=== PATIENT | female | born 1970 | race Caucasian/White ===

== ENCOUNTER 2018-02-06 19:54 | Emergency (ER) | payer OTHER ==
[~2018-02-06] VITALS: Ht 160 cm; Wt 77.1 kg
[~2018-02-06 19:54] MED LIST: DICLOFENAC SODI75 MG PO; HYDROCODONE-APA1 TA1 PO; IBUPROFEN 200200 M1 PO; NAPROSYN500 MG PO
[2018-02-06 19:58] VITALS: BP 152/88
[2018-02-06] MEDS ORDERED: METFORMIN HCL500 MG PO (20:03)
[2018-02-06] MEDS ORDERED: VOLTAREN 50MG T50 MG PO (20:07)
[2018-02-06] MEDS ORDERED: HYDROCODONE-AP1 EAC6 PO (20:07)
== END 2018-02-06 20:14 | disposition home or self-care (01) ==
LOC: M.ERS 19:54
DX: G89.29 Other chronic pain (principal); M25.562 Pain in left knee; E11.9 Type 2 diabetes mellitus without complications; I10 Essential (primary) hypertension; F17.210 Nicotine dependence, cigarettes, uncomplicated; Z88.6 Allergy status to analgesic agent; Z96.652 Presence of left artificial knee joint

== ENCOUNTER 2018-11-27 10:41 | Emergency (ER) | payer BC ==
[~2018-11-27] VITALS: Ht 162.6 cm; Wt 77.1 kg
[~2018-11-27 10:41] MED LIST changes: +HYDROCODONE-AP1 EAC6 PO; +METFORMIN HCL500 MG PO; +VOLTAREN 50MG T50 MG PO
[2018-11-27 11:27] LABS: URINE BILIRUBIN NEGATIVE (Negative); URINE BLOOD NEGATIVE (Negative); URINE CLARITY CLEAR; URINE COLOR YELLOW; URINE GLUCOSE-RANDOM NEGATIVE (Negative); URINE KETONES NEGATIVE (Negative); URINE LEUKOCYTES-REFLEX NEGATIVE (Negative); URINE NITRITE-REFLEX NEGATIVE (Negative); URINE PROTEIN NEGATIVE (Negative); URINE UROBILINOGEN 0.2 E.U./dl (0.2-1.0)
[2018-11-27 11:31] LABS: ABSOLUTE BASOPHILS 0.1 thou/uL (0.0-0.2); ABSOLUTE EOSINOPHILS 0.2 thou/uL (0.0-0.7); ABSOLUTE MONOCYTES 0.7 thou/uL (0.0-1.2); ABSOLUTE NEUTROPHILS 7.6 thou/uL (1.6-8.1); BASOPHILS 1.1 %; EOSINOPHILS 1.9 %; HEMATOCRIT 38.2 % (37.0-47.0); LYMPHOCYTES 18.8 %; MCH 30.4 pg (26.0-34.0); MCHC 34.1 g/dL (28.0-37.0); MCV 89.1 fL (80.0-100.0); MONOCYTES 6.9 %; NUCLEATED RBCS 0 /100WBC; PLATELET COUNT* 325 thou/uL (150-400); POLYS 71.3 %; RBC 4.29 mil/uL (4.20-5.00); RDW-CV 16.8 % (10.5-14.5); WBC 10.7 thou/uL (4.0-11.0)
[2018-11-27 11:50] LABS: ANION GAP 10 mmol/L (7-16); BUN 16 mg/dL (7-18); CALCIUM 9.5 mg/dL (8.5-10.1); CHLORIDE 104 mmol/L (98-107); CO2 25 mmol/L (21-32); CREATININE 0.7 mg/dL (0.6-1.3); GLUCOSE 147 mg/dL (70-99); POTASSIUM 4.7 mmol/L (3.5-5.1); SODIUM 139 mmol/L (136-145); TROPONIN-I LEVEL <0.06 ng/mL (<0.06)
[2018-11-27 11:58] LABS: ALBUMIN 3.5 g/dL (3.4-5.0); ALKALINE PHOSPHATASE 68 U/L (46-116); LIPASE 227 U/L (73-393); SGOT 14 U/L (15-37); SGPT 18 U/L (30-65); TOTAL BILIRUBIN 0.1 mg/dL (<0.1-1.0); TOTAL PROTEIN 7.8 g/dL (6.4-8.2)
[2018-11-27] MEDS ORDERED: HYDROXYZINE HCL25 M1 PO (12:06)
[2018-11-27 12:40] VITALS: BP 114/59
--- NOTE | 2018-11-27 13:37 | EKG ---
[place] [address] ELECTROCARDIOGRAM REPORT Name: JACQUE GAR Room: [facility]#: [id number] Admission: 11/27/18 Attend Phys: Discharge: 11/27/18 Date of : 72 Report #: [id number] THIS REPORT FOR: //name// [facility] ED Test Date: 2018-11-27 Test Time: 10:48:12 Pat Name: JACQUE GAR Department: Room: Gender: F Clerical Aide Teacher: Christianne RUSSELL : 1970 Requested By: Angelica Rice Order Number: [id number] MD: Andrew Trinidad Measurements Intervals [place] Rate: 79 P: 55 [place]: 142 QRS: 31 QRSD: 95 T: -5 QT: 360 QTc: 413 Interpretive Statements Sinus rhythm No previous ECG available for comparison Electronically Signed On 11-27-2018 13:37:03 CDT by Andrew Trinidad [email or web address] <ELECTRONICALLY SIGNED> By: Andrew Trinidad MD, [facility] 11/27/18 1337 1048 1048 Andrew Trinidad MD, FACC /EPI
== END 2018-11-27 12:40 | disposition home or self-care (01) ==
LOC: M.ERS 10:41
PROVIDERS: Physician Assistant
DX: I10 Essential (primary) hypertension (principal); F41.9 Anxiety disorder, unspecified; E11.9 Type 2 diabetes mellitus without complications; F17.210 Nicotine dependence, cigarettes, uncomplicated; Z88.8 Allergy status to other drugs, medicaments and biological substances

== ENCOUNTER → 2019-02-12 | Outpatient (CLI) | payer BC ==
[~2019-02-12] MED LIST changes: +HYDROXYZINE HCL25 M1 PO
[2019-02-12 11:39] LABS: ABSOLUTE BASOPHILS 0.1 thou/uL (0.0-0.2); ABSOLUTE EOSINOPHILS 0.3 thou/uL (0.0-0.7); ABSOLUTE MONOCYTES 0.6 thou/uL (0.0-1.2); ABSOLUTE NEUTROPHILS 5.4 thou/uL (1.6-8.1); BASOPHILS 1.1 %; EOSINOPHILS 3.6 %; HEMATOCRIT 46.4 % (37.0-47.0); HEMOGLOBIN 15.5 gm/dL (12.0-15.0); LYMPHOCYTES 24.2 %; MCH 31.8 pg (26.0-34.0); MCHC 33.4 g/dL (28.0-37.0); MCV 95.2 fL (80.0-100.0); MONOCYTES 6.9 %; MPV 8.3 fl. (7.2-11.1); NUCLEATED RBCS 0 /100WBC; PLATELET COUNT* 259 thou/uL (150-400); POLYS 64.2 %; RBC 4.87 mil/uL (4.20-5.00); RDW-CV 14.1 % (10.5-14.5); WBC 8.4 thou/uL (4.0-11.0)
[2019-02-12 12:02] LABS: ALBUMIN 3.9 g/dL (3.4-5.0); ALKALINE PHOSPHATASE 72 U/L (46-116); ANION GAP 11 mmol/L (7-16); BUN 18 mg/dL (7-18); CALCIUM 9.7 mg/dL (8.5-10.1); CHLORIDE 100 mmol/L (98-107); CHOLESTEROL 325 mg/dL (<200); CO2 26 mmol/L (21-32); CREATININE 0.7 mg/dL (0.6-1.3); GLUCOSE 178 mg/dL (70-99); HDL CHOLESTEROL 49 mg/dL (>40); LDL CHOLESTEROL 255 mg/dL (<100); POTASSIUM 4.4 mmol/L (3.5-5.1); SGOT 11 U/L (15-37); SGPT 16 U/L (30-65); SODIUM 137 mmol/L (136-145); TC:HDL 6.6 Ratio (Not establshd); TOTAL BILIRUBIN 0.3 mg/dL (<0.1-1.0); TOTAL PROTEIN 8.6 g/dL (6.4-8.2); TRIGLYCERIDE 109 mg/dL (<150); VLDL 22 mg/dL (<40)
[2019-02-12 12:07] LABS: SERUM ASSESSMENT Clear
[2019-02-12 21:09] LABS: PROLACTIN 6.1 ng/mL (4.8-23.3); TESTOSTERONE 21 ng/dL (8-48)
[2019-02-13 12:05] LABS: GLYCOHEMOGLOBIN (HGB A1C) 6.8 % (4.8-5.6)
== END ==
LOC: M.LAB 10:55
PROVIDERS: Nurse Practitioner Family
DX: E11.65 Type 2 diabetes mellitus with hyperglycemia (principal); R53.83 Other fatigue; R45.86 Emotional lability; N95.1 Menopausal and female climacteric states; Z79.899 Other long term (current) drug therapy

== ENCOUNTER 2019-05-24 05:32 | Emergency (ER) | payer BC ==
[~2019-05-24] VITALS: Ht 160 cm; Wt 74.8 kg
[2019-05-24] MEDS ORDERED: GABAPENTIN100 MG PO (05:40)
[2019-05-24] MEDS ORDERED: LIPITOR40 MG PO (05:40)
[2019-05-24] MEDS ORDERED: PROPRANOLOL 1010 MG PO (05:40)
[2019-05-24] MEDS ORDERED: NORCO 7.5-3251 EACH PO (05:52)
[2019-05-24] MEDS ORDERED: CLEOCIN HCL150 MG PO (05:52)
[2019-05-24 05:59] VITALS: BP 164/94
== END 2019-05-24 06:00 | disposition home or self-care (01) ==
LOC: M.ERS 05:32
DX: K04.7 Periapical abscess without sinus (principal); F17.210 Nicotine dependence, cigarettes, uncomplicated; I10 Essential (primary) hypertension; E11.9 Type 2 diabetes mellitus without complications; Z88.6 Allergy status to analgesic agent

== ENCOUNTER 2019-12-27 02:30 | Inpatient (IN) | payer BC ==
[2019-12-27] VITALS (43 sets, daily range): BP systolic 81–146; BP diastolic 54–85
[~2019-12-27] VITALS: Ht 160 cm; Wt 80.7 kg
--- NOTE | ~2019-12-27 | H ---
[place] [address] HISTORY AND PHYSICAL Name: JACQUE GAR Room: [place] [address] ADM IN M.R.#: [id number] Admission: 12/27/19 Attend Phys: Willie Albrecht MD Discharge: Date of : 72 Report #: [id number] THIS REPORT FOR: //name// cc: Jose Enrique Cui Russell J. DO ~ THIS REPORT FOR: //name// CC: Willie Cui DATE OF SERVICE: 12/27/2019 INDICATION: Chest pain. HISTORY OF PRESENT ILLNESS: This is a 49-year-old female with a history of diabetes mellitus, tobacco use and hypercholesterolemia, presenting with acute onset of chest pain. After having sexual intercourse, she developed severe back pain. It radiated to the front and down both arms. She denies any shortness of breath, fever, chills, cough, diarrhea or diaphoresis. She presented to the ER within an hour of onset of symptoms. EKG showed severe ST segment depressions in the precordial leads. The patient was treated with aspirin and heparin, symptoms have diminished, but still persistent. PAST MEDICAL HISTORY: Diabetes mellitus, usually on Jardiance, but has not been on it for the past month due to cost issues; hypercholesterolemia; anxiety; neuropathy. ALLERGIES: None. MEDICATIONS: Include Lipitor 40 mg, propranolol for anxiety, gabapentin, Jardiance, but not on it for the past month. ALLERGIES: None. SOCIAL HISTORY: One pack per day smoker. FAMILY HISTORY: Negative for premature CAD. REVIEW OF SYSTEMS: A full 10-point review of systems performed. Only the pertinent positives and negatives are described in the HPI. PHYSICAL EXAMINATION: VITAL SIGNS: Blood pressure 120/70, heart rate is 90 beats per minute. GENERAL APPEARANCE: This is a well-developed, well-nourished female in no acute distress. HEENT: Normocephalic, atraumatic. [place] [address] HISTORY AND PHYSICAL Name: JACQUE GAR Room: [address] IN ..#: [id number] Admission: 12/27/19 Attend Phys: Willie Albrecht MD Discharge: Date of : 72 Report #: [id number] NECK: Supple. LUNGS: Clear to auscultation. CARDIAC: Regular rate and rhythm, S1, S2 positive. ABDOMEN: Soft, nontender. EXTREMITIES: No cyanosis, no edema. NEUROLOGIC: Alert and oriented x 3. ECG reveals sinus rhythm with ST segment depressions in the precordial leads. LABORATORY VALUES: Pending. ASSESSMENT AND PLAN: 1. Acute coronary syndrome/unstable angina, the patient with acute onset of symptoms and abnormal ECG. Initially treated with aspirin and heparin, but symptoms are still persistent. We will proceed with emergent cardiac catheterization. Risks/benefits and alternatives discussed. The patient voices understanding and wishes to proceed. 2. Diabetes mellitus, resume Jardiance. 3. Hypercholesterolemia, continue with Lipitor. 4. Tobacco use, complete smoking cessation is advised. By: [id number] Albrecht MD /nt
[~2019-12-27 02:30] MED LIST changes: +CLEOCIN HCL150 MG PO; +GABAPENTIN100 MG PO; +LIPITOR40 MG PO; +NORCO 7.5-3251 EACH PO; +PROPRANOLOL 1010 MG PO
[2019-12-27] MEDS ORDERED: ADDERALL 20 MG20 MG PO (02:49)
[2019-12-27] MEDS ORDERED: CYMBALTA30 MG PO (02:49)
[2019-12-27] MEDS ORDERED: NEURONTIN 300M300 M2 PO (02:50)
[2019-12-27 02:59] LABS: ABSOLUTE BASOPHILS 0.2 thou/uL (0.0-0.2); ABSOLUTE EOSINOPHILS 0.5 thou/uL (0.0-0.7); ABSOLUTE LYMPHOCYTES 4.7 thou/uL (0.8-5.3); ABSOLUTE MONOCYTES 1.4 thou/uL (0.0-1.2); ABSOLUTE NEUTROPHILS 8.9 thou/uL (1.6-8.1); BASOPHILS 1.2 %; EOSINOPHILS 3.1 %; HEMATOCRIT 39.8 % (37.0-47.0); HEMOGLOBIN 13.8 gm/dL (12.0-15.0); LYMPHOCYTES 29.8 %; MCH 31.9 pg (26.0-34.0); MCHC 34.5 g/dL (28.0-37.0); MCV 92.3 fL (80.0-100.0); MONOCYTES 8.8 %; MPV 7.8 fl. (7.2-11.1); NUCLEATED RBCS 0 /100WBC; PLATELET COUNT* 269 thou/uL (150-400); POLYS 57.1 %; RBC 4.31 mil/uL (4.20-5.00); WBC 15.6 thou/uL (4.0-11.0)
[2019-12-27 03:11] LABS: INR 0.9; PROTIME 9.5 Seconds (9.20-11.50)
[2019-12-27 03:17] LABS: CALCIUM 8.3 mg/dL (8.5-10.1); CREATININE 0.8 mg/dL (0.6-1.3)
[2019-12-27 03:27] LABS: ALBUMIN 3.4 g/dL (3.4-5.0); TOTAL BILIRUBIN 0.2 mg/dL (<0.1-1.0); TOTAL PROTEIN 7.7 g/dL (6.4-8.2)
[2019-12-27] MEDS ORDERED: LIPITOR40 MG PO (03:29)
[2019-12-27 06:19] LABS: HEMATOCRIT 40.1 % (37.0-47.0); HEMOGLOBIN 13.6 gm/dL (12.0-15.0); MCH 31.2 pg (26.0-34.0); MCHC 33.8 g/dL (28.0-37.0); MCV 92.3 fL (80.0-100.0); RBC 4.34 mil/uL (4.20-5.00); RDW-CV 13.6 % (10.5-14.5); WBC 13.4 thou/uL (4.0-11.0)
[2019-12-27 06:35] LABS: ALBUMIN 3.3 g/dL (3.4-5.0); CALCIUM 8.3 mg/dL (8.5-10.1); CREATININE 0.7 mg/dL (0.6-1.3); POTASSIUM 4.4 mmol/L (3.5-5.1); TOTAL BILIRUBIN 0.2 mg/dL (<0.1-1.0)
[2019-12-27 06:36] LABS: CK-MB MASS 3.5 ng/mL (<0.5-3.6); TROPONIN-I LEVEL 0.65 ng/mL (<0.06)
--- NOTE | 2019-12-27 07:24 | NUR ---
PATIENT ARRIVED FROM SENIOR DIRECTOR OF [employer] AT 0450. R GROIN INSERTION SITE CLEAN DRY AND INTACT. NO EVIDENCE OF HEMATOMA OR INTERNAL BLEEDING. SENSATION TO LOWER EXTREMITY INTACT. PATIENT COMPLAINING OF MODERATE BACK PAIN. ADMINISTERED PAIN MEDS PER ORDER. PATIENT IS REPORTED TO BE A CHRONIC 2 PPD SMOKER AND DRINKS 3-4 BEERS EACH NIGHT. REFUSED CASE MANAGMENT CONSULT. PATIENT IS EAGER TO BE DISCHARGED TODAY. PATIENT WAS INFORMED IT WOULD DEPEND ON THE RN CRITICAL CARE'S FINDINGS AND HOW THE PATIENT PROGRESSED WITH THE PLAN OF CARE. PATIENT CAN COME OFF BEDREST AT 0900. NO OTHER SIGNIFICANT EVENTS THIS SHIFT. VSS
[2019-12-27] MEDS ORDERED: VISTARIL50 MG PO (14:07)
--- NOTE | 2019-12-27 16:10 | EKG ---
[place] [address] ELECTROCARDIOGRAM REPORT Name: JACQUE GAR Room: [address] ADM IN M.R.#: [id number] Admission: 12/27/19 Attend Phys: Willie Albrecht MD Discharge: Date of : 72 Date of Service: 12/27/19 0232 Report #: [id number] THIS REPORT FOR: //name// [facility] ED Test Date: 2019-12-27 Test Time: 02:32:31 Pat Name: JACQUE GAR Department: Room: [facility] Gender: F Customer Energy Specialist: LUCIO : 1970 Requested By: Leilani Villafana Order Number: [id number] MD: Sajan Manjarrez Measurements Intervals [place] Rate: 79 P: 73 [place]: 145 QRS: 55 QRSD: 113 T: 52 QT: 394 QTc: 452 Interpretive Statements Sinus rhythm Probable left atrial enlargement Borderline intraventricular conduction delay Repol abnrm suggests ischemia, diffuse leads ST depression V1-V3, suggest recording posterior leads Compared to ECG 11/27/2018 10:48:12 Early repolarization now present Possible ischemia now present ST (T wave) deviation now present Electronically Signed On 12-27-2019 16:08:25 CDT by Sajan Manjarrez [email or web address] <ELECTRONICALLY SIGNED> By: Sajan Manjarrez MD, [facility] 12/27/19 1608 1 1 Sajan Manjarrez MD, [facility] /EPI
--- NOTE | 2019-12-27 17:55 | NUR ---
PT TRANFERED TO ROOM 222. REPORT GIVEN TO SHELL LEVINE. ALL BELONGINGS SENT WITH PT.
--- NOTE | 2019-12-27 18:58 | NUR ---
PT ARRIVED TO FLOOR FROM ICU IN WC. PT A&OX4 VSS. PT UP AD DUKE GAIT STEADY. PT ACCUCHECK, SLIDING SCALE INSULIN ON OCT. PT ATE DINNER PRIOR TO LEAVING ICU. PT CONTINENT OF B/B. PT IN ROOM WITH CALL LIGHT IN REACH. WILL CONTINUE TO MONITOR.
[2019-12-28] VITALS: BP 130/83
[2019-12-28 04:00] VITALS: BP 148/97
[2019-12-28 04:40] LABS: HEMATOCRIT 37.9 % (37.0-47.0); MCH 31.7 pg (26.0-34.0); MCHC 34.2 g/dL (28.0-37.0); MCV 92.6 fL (80.0-100.0); MPV 7.9 fl. (7.2-11.1); RBC 4.09 mil/uL (4.20-5.00); RDW-CV 13.4 % (10.5-14.5); WBC 8.1 thou/uL (4.0-11.0)
[2019-12-28 05:14] LABS: ALBUMIN 3.1 g/dL (3.4-5.0); ALKALINE PHOSPHATASE 72 U/L (46-116); ANION GAP 11 mmol/L (7-16); BUN 11 mg/dL (7-18); CALCIUM 7.9 mg/dL (8.5-10.1); CHLORIDE 103 mmol/L (98-107); CHOLESTEROL 266 mg/dL (<200); CO2 25 mmol/L (21-32); CREATININE 0.6 mg/dL (0.6-1.3); GLUCOSE 128 mg/dL (70-99); HDL CHOLESTEROL 45 mg/dL (>40); LDL CHOLESTEROL 200 mg/dL (<100); POTASSIUM 3.9 mmol/L (3.5-5.1); SGOT 25 U/L (15-37); SGPT 20 U/L (30-65); SODIUM 139 mmol/L (136-145); TC:HDL 5.9 Ratio (Not establshd); TOTAL BILIRUBIN 0.3 mg/dL (<0.1-1.0); TOTAL PROTEIN 6.5 g/dL (6.4-8.2); TRIGLYCERIDE 108 mg/dL (<150); VLDL 22 mg/dL (<40)
[2019-12-28 05:15] LABS: SERUM ASSESSMENT Clear
[2019-12-28 05:16] LABS: TROPONIN-I LEVEL 2.21 ng/mL (<0.06)
[2019-12-28 07:00] VITALS: BP 133/81
--- NOTE | 2019-12-28 07:56 | NUR ---
PT A+O X4. UP WITH STEADY GAIT. WAS VISITING NIECE WHO WAS ANOTHER PT ON THE UNIT. ONLY REPORTED BACK PAIN @ BEDTIME. RIGHT GROIN DRESSING DRY AND INTACT. SLEPT THROUGH REMAINDER OF SHIFT. CALL LIGHT IN REACH. HOUIRLY ROUNDING FOR SAFETY.
--- NOTE | 2019-12-28 08:28 | NUR ---
INITAL ASSESSMENT COMPLETED CHARTED. VSS. TRACING SR ON MONITOR. PT DENIES PAIN, N/V/D, SOA, CP. NO NEW CONCERNS AT THSI TIME. REFER TO COMPUTER CHARTING FOR FURTHER DETAILS. HOURLY ROUNDING IN PLACE FOR PT SAFETY. CLWR.
[2019-12-28] MEDS ORDERED: ASPIR 8181 MG PO (09:54)
[2019-12-28] MEDS ORDERED: LIPITOR 40 MG T40 M1 PO (09:54)
[2019-12-28] MEDS ORDERED: LOPRESSOR25 PO (09:54)
[2019-12-28] MEDS ORDERED: BRILINTA90 MG PO (09:54)
[2019-12-28 10:00] VITALS: BP 133/81
[2019-12-28 10:33] VITALS: BP 133/81
--- NOTE | 2019-12-28 10:48 | CARD ---
[address] [address] CARDIAC CATH REPORT Name: JACQUE GAR Room: [address] IN [facility].#: [id number] Admission: 12/27/19 Attend Phys: Willie Albrecht MD Discharge: Date of : 72 Report #: [id number] THIS REPORT FOR: //name// cc: Jose Enrique Cui Russell J. DO ~ APPROVED REPORT Study performed: 12/27/2019 03:06:43 Patient Details Patient Status: ED Room #: The patient is a 49 year-old female Event Personnel Elmer Magdaleno RTR Monitor, Juju Campoverde RN, Marquise Sarabia Park, Jin Reducing Machine Operator Procedures Performed Left Heart Cath w/or w/o Coronaries [id number] [facility] Place w/wo Plasty Single CIRC [id number] Hemostasis w/ Angioseal Indication Dyspnea, Unstable angina , Chest pain, The patient presented with acute onset of chest pain. Initial ECG revealed significant ST segment depression in the precordial leads. Symptoms improved but still persisted with medical therapy in the ER. Risk Factors Hypercholesterolemia, Hypertension, Diabetes Tobacco History () Admission/Lab Medications/Medications given during procedure Lidocaine Subcut 20 ml, Fentanyl IV 50 mcg, Midazolam (Versed) IV 1 mg, Angiomax IV 11 ml, Angiomax IV 27 ml per hr, Ticagrelor PO 180 mg Procedure Narrative The patient was brought emergently to the Cardiac Catheterization Laboratory and was prepped and draped in a sterile manner. The right femoral was infiltrated with 2% Lidocaine subcutaneous anesthesia. A [place] 6 FR sheath was inserted into the right femoral artery. Coronary angiography was performed using coronary diagnostic catheters. The right coronary system was accessed and visualized with a Diagnostic JR4 6Fr catheter. The left [place] [address] CARDIAC CATH REPORT Name: JACQUE GAR Room: [address] IN ..#: [id number] Admission: 12/27/19 Attend Phys: Willie Albrecht MD Discharge: Date of : 72 Report #: [id number] and visualized with a Diagnostic JL4 6Fr catheter. The left ventricle was accessed and visualized with a Diagnostic Pigtail Angeled 6Fr catheter. Closure device was deployed with a Fr Angioseal STS 6Fr. The patient tolerated the procedure well and there were no complications associated with the procedure. There was no hematoma. Intraoperative Conscious Sedation Sedation start time: 339 Case end Time: 428 Fentanyl 50 mcg Versed 2 mg Fluoro Time: 20.6 minutes Dose: DAP 704756 cGycm2 2165.38 mGy Contrast Type and Amount: Visipaque 200 ml Coronary Angiography The patient's coronary anatomy is co- dominant. Diagnostic Cath Left Main Left main artery is a patent vessel, with no flow-limiting lesions. LAD There is a borderline stenosis in the proximal/mid segment of the LAD, 60%. Diagonal 1 This is a small-caliber vessel, patent with no flow-limiting lesions. Circumflex The left circumflex artery is a codominant vessel. There is a severe, discrete stenosis in the proximal segment, 95%. OM1 This is a moderate size caliber vessel, patent with no flow-limiting lesions. OM2 This is a moderate size caliber vessel, patent with no flow-limiting lesions. OM3 This is a moderate size caliber vessel, patent with no flow-limiting lesions. Right Coronary The RCA has severe, diffuse disease from the proximal to distal segment. R PDA The PDA is filled via collateral circulation from the left coronary artery. Left Ventriculography The left ventricle is normal in size with normal contractility. The left ventricular ejection fraction is estimated to be 55-60%. [place] [address] CARDIAC CATH REPORT Name: JACQUE GAR Room: [address] IN [facility]#: [id number] Admission: 12/27/19 Attend Phys: Willie Albrecht MD Discharge: Date of : 72 Report #: [id number] The aortic pressure is 119/73 mmHg with a mean of 93 mmHg. The left ventricular pressure is 111/4 mmHg with a mean of mmHg. The left ventricular end diastolic pressure is 16 mmHg. PCI Technique Lesion Percutaneous coronary intervention was performed on the proximal circumflex artery segment. The lesion stenosis prior to intervention was 95% with WOODROW 3 flow. A 6FR JL 4.0 Guide Catheter was used to engage the Left ostium. A IG: Luge Wire 180 Interventional Guidewire was used to cross the lesion. BALLOON DILATION A Balloon catheter Trek RX 2.25 X 12 was inserted and inflated up to 12.00atm for 10seconds. STENT DEPLOYMENT A drug-eluting stent Resolute RX 2.5X22 was inserted and inflated up to 14.00atm for 12seconds. POST STENT DEPLOYMENT BALLOON DILATION A Balloon catheter NC Trek RX 2.75 X 12 was inserted and inflated up to 18.00atm for 15seconds. Additional Inflation: 18.00atm for 13seconds. Final angiography reveals 0 % stenosis with WOODROW 3 flow. PCI Technique Lesion 2 Percutaneous coronary intervention was performed on the mid right coronary artery. Comments Unsuccessful PCI involving the severe, diffuse RCA lesions. Due to inability to pass a wire (Luge and Whisper) through the occlusions, more likely chronic as the PDA is filled via collateral circulation from the left coronary artery. Conclusion 1. Successful insertion of a drug-eluting stent into the proximal left circumflex artery(codominant vessel). 2. Unsuccessful PCI due to inability to cross the RCA stenoses with a wire. Probably a chronic occlusion, the PDA is filled via collateral circulation from the left coronary artery. 3. Borderline stenosis in the proximal/mid LAD. 4. Normal [place] [address] CARDIAC CATH REPORT Name: JACQUE GAR Room: [address] IN [facility]#: [id number] Admission: 12/27/19 Attend Phys: Willie Albrecht MD Discharge: Date of : 72 Report #: [id number] 5. Recommend dual antiplatelet therapy and aggressive risk factor management. <ELECTRONICALLY SIGNED> By: Willie Albrecht MD 12/28/19 1046 1046 1046Willie Albrecht MD /INF
--- NOTE | 2019-12-28 14:44 | 2DMMODE ---
[place] [address] 2 D/M-MODE ECHOCARDIOGRAM Name: JACQUE GAR Room: [address] IN [place]#: [id number] Admission: 12/27/19 Attend Phys: Willie Albrecht MD Discharge: 12/28/19 Date of : 72 Date of Service: 12/28/19 1442 Report #: [id number] THIS REPORT FOR: cc: Jose Enrique Cui Russell J. DO Holkins,Oniel Patel MD [facility] ~ APPROVED REPORT Study performed: 12/28/2019 10:31:44 EXAM: Comprehensive 2D, Doppler, and color-flow Echocardiogram Patient Location: In-Patient Room #: [facility] Status: routine BSA: 1.84 HR: 63 bpm BP: 133/81 mmHg Rhythm: NSR Other Information Study Quality: Good Indications Non STEMI 2D Dimensions IVSd: 11.11 (7-11mm) LVOT Diam: 19.96 (18-24mm) LVDd: 49.14 mm PWd: 9.12 (7-11mm) LVDs: 27.75 (25-40mm) Aortic Root: 25.75 mm Volumes Left Atrial Volume (Systole) LA ESV Index: 35.60 mL/m2 Aortic Valve AoV Peak Brennon.: 1.52 m/s AO Peak Gr.: 9.19 mmHg LVOT Max P.00 mmHg AO Mean Gr.: 4.80 mmHg LVOT Mean P.09 mmHg LVOT Max V: 1.12 m/s AO V2 VTI: 30.98 cm LVOT Mean V: 0.65 m/s [place]O (VTI): 2.38 cm2 LVOT V1 VTI: 23.58 [place] [address] 2 D/M-MODE ECHOCARDIOGRAM Name: JACQUE GAR Room: [address] IN M.R.#: [id number] Admission: 12/27/19 Attend Phys: Willie Albrecht MD Discharge: 12/28/19 Date of : 72 Date of Service: 12/28/19 1442 Report #: [id number] Mitral Valve E/A Ratio: 1.62 MV Decel. Time: 192.69 ms MV E Max Brennon.: 0.71 m/s MV PHT: 55.88 ms MVA (PHT): 3.94 cm2 TDI E/Lateral E': 7.10 E/Medial E': 6.45 Medial E' Brennon.: 0.11 m/s Lateral E' Brennon.: 0.10 m/s Pulmonary Valve PV Peak Brennon.: 0.86 m/s PV Peak Gr.: 2.93 mmHg Left Ventricle The left ventricle is normal size. There is mild inferobasilar hypokinesis. There is normal left ventricular wall thickness. Left ventricular systolic function is normal. The left ventricular ejection fraction is within the normal range. LVEF is 55-60%. The left ventricular diastolic function is normal. Right Ventricle The right ventricle is normal size. The right ventricular systolic function is normal. Atria The left atrium size is normal. The right atrium size is normal. Aortic Valve Mild aortic valve sclerosis. No aortic regurgitation is present. There is no aortic valvular stenosis. Mitral Valve The mitral valve is normal in structure. Mild mitral regurgitation. No evidence of mitral valve stenosis. Tricuspid Valve The tricuspid valve is normal in structure. Unable to assess PA pressure. Trace tricuspid regurgitation. Pulmonic Valve The pulmonary valve is normal in structure. There is no pulmon[place] [address] 2 D/M-MODE ECHOCARDIOGRAM Name: JACQUE GAR Room: [address]#: [id number] Admission: 12/27/19 Attend Phys: Willie Albrecht MD Discharge: 12/28/19 Date of : 72 Date of Service: 12/28/19 1442 Report #: [id number] Great Vessels The aortic root is normal in size. IVC is normal in size and collapses >50% with inspiration. Pericardium There is no pericardial effusion. <Conclusion> The left ventricle is normal size. There is normal left ventricular wall thickness. Left ventricular systolic function is normal. The left ventricular ejection fraction is within the normal range. LVEF is 55-60%. The left ventricular diastolic function is normal. The right ventricle is normal size. The left atrium size is normal. Mild aortic valve sclerosis. No aortic regurgitation is present. There is no aortic valvular stenosis. The mitral valve is normal in structure. Mild mitral regurgitation. The tricuspid valve is normal in structure. IVC is normal in size and collapses >50% with inspiration. There is no pericardial effusion. There is mild inferobasilar hypokinesis. <ELECTRONICALLY SIGNED> By: Oniel Witt MD, FACC 12/28/19 1442 1442 144 Oniel Witt MD, FACC /INF
--- NOTE | 2019-12-28 14:55 | EKG ---
[place] [address] ELECTROCARDIOGRAM REPORT Name: JACQUE GAR Room: [address] IN M.R.#: [id number] Admission: 12/27/19 Attend Phys: Willie Albrecht MD Discharge: 12/28/19 Date of : 72 Date of Service: 12/27/19 0238 Report #: [id number] THIS REPORT FOR: //name// [facility] ED Test Date: 2019-12-27 Test Time: 02:38:58 Pat Name: JACQUE GAR Department: Room: [facility] Gender: F Transportation Design Engineer: LUCIO : 1970 Requested By: Willie Albrecht Order Number: [id number] Reading MD: Oniel Witt Measurements Intervals [place] Rate: 74 P: 79 [place]: 142 QRS: 53 QRSD: 115 T: 47 QT: 400 QTc: 444 Interpretive Statements Sinus rhythm with sinus arrhythmia Atrial premature complexes Incomplete left bundle branch block Right precordial ST segment depression; acute posterior injury suggested Compared to ECG 12/27/2019 02:32:31 Atrial premature complex(es) now present Incomplete Left bundle-branch block now present Myocardial infarct finding persists ST (T wave) deviation still present Electronically Signed On 12-28-2019 14:53:18 CDT by Oniel Witt [email or web address] <ELECTRONICALLY SIGNED> By: Oniel Witt MD, [facility] 12/28/19 1453 7 023 Oniel Witt MD, [facility] /EPI
--- NOTE | 2019-12-28 14:55 | EKG ---
[place] [address] ELECTROCARDIOGRAM REPORT Name: JACQUE GAR Room: [address] DIS IN M.R.#: [id number] Admission: 12/27/19 Attend Phys: Willie Albrecht MD Discharge: 12/28/19 Date of : 72 Date of Service: 12/27/19 0628 Report #: [id number] THIS REPORT FOR: //name// [facility] Test Date: 2019-12-27 Test Time: 06:28:00 Pat Name: JACQUE GAR Department: Room: [address] Gender: F Network Security Engineer: ADDIS : 1970 Requested By: Leilani Villafana Order Number: [id number] Reading MD: Oniel Witt Measurements Intervals [place] Rate: 92 P: 75 CT: 149 QRS: 60 QRSD: 100 T: 46 QT: 386 QTc: 478 Interpretive Statements Sinus rhythm Compared to ECG 12/27/2019 02:32:31 Early repolarization no longer present Possible ischemia no longer present ST (T wave) deviation no longer present Electronically Signed On 12-28-2019 14:53:26 CDT by Oniel Witt [email or web address] <ELECTRONICALLY SIGNED> By: Oniel Witt MD, FAC 12/28/19 1453 0628 0628 Oniel Witt MD, FAC /EPI
--- NOTE | 2019-12-28 14:59 | EKG ---
[place] [address] ELECTROCARDIOGRAM REPORT Name: JACQUE GAR Room: [address] IN M.R.#: [id number] Admission: 12/27/19 Attend Phys: Willie Albrecht MD Discharge: 12/28/19 Date of : 72 Date of Service: 12/28/19 0451 Report #: [id number] THIS REPORT FOR: //name// [facility] Test Date: 2019-12-28 Test Time: 04:51:19 Pat Name: JACQUE GAR Department: Room: [facility] Gender: F Retail Marketing Coordinator: SHAKEEL : 1970 Requested By: Willie Albrecht Order Number: [id number] Reading MD: Oniel Witt Measurements Intervals [place] Rate: 70 P: 71 [place]: 143 QRS: 48 QRSD: 107 T: 36 QT: 497 QTc: 537 Interpretive Statements Sinus rhythm Prolonged QT interval Compared to ECG 12/27/2019 02:32:31 Prolonged QT interval now present Early repolarization no longer present Possible ischemia no longer present ST (T wave) deviation no longer present Electronically Signed On 12-28-2019 14:57:43 CDT by Oniel Witt [email or web address] <ELECTRONICALLY SIGNED> By: Oniel Witt MD, FAC 12/28/19 1457 0451 0451 Oniel Witt MD, FAC /EPI
--- NOTE | 2019-12-29 08:29 | D ---
[address] [address] DISCHARGE SUMMARY Name: JACQUE GAR Room: [address] IN M.R.#: [id number] Admission: 12/27/19 Attend Phys: Willie Albrecht MD Discharge: 12/28/19 Date of : 72 Report #: [id number] THIS REPORT FOR: //name// cc: Jose Enrique Cui Russell J. DO ~ THIS REPORT FOR: //name// CC: Willie Cui DATE OF SERVICE: 12/27/2019 CARDIOLOGY DISCHARGE SUMMARY DISCHARGE DIAGNOSES: 1. Non-ST elevation myocardial infarction. 2. Hypertension. 3. Dyslipidemia. 4. Type 2 diabetes mellitus. PROCEDURES DURING THE HOSPITALIZATION: 1. Urgent left heart catheterization and coronary angiography. 2. Percutaneous coronary intervention with drug-eluting stent placement to the circumflex coronary artery. 3. Telemetry monitoring. 4. Echocardiogram. HOSPITAL COURSE: The patient was admitted to the Emergency Room at approximately 2:00 a.m. on 12/27/2019 with acute chest pain. EKG showed diffuse significant ST-segment depression. A code STEMI was called. The patient went to the microbiological laboratory technician and was found to have a subtotally occluded right coronary artery and 95% circumflex coronary artery. The right coronary artery was not amenable to intervention. The circumflex coronary artery was amenable and a drug-eluting stent placed in the mid circumflex with excellent result. The patient has residual moderate disease in the left anterior descending coronary artery. Consideration for staged procedure at this point in time. The patient remained stable on telemetry monitoring. She was started on dual antiplatelet therapy. Fasting lipid profile was evaluated. Her LDL cholesterol was 200. She has not been compliant with her medications. She is being placed on an intense dose statin agent at this time. DISCHARGE MEDICATIONS: Will include aspirin 81 mg daily, atorvastatin 80 mg nightly, duloxetine 90 mg daily, Flexeril 10 mg t.i.d., gabapentin 300 mg t.i.d., hydroxyzine 100 mg every 6 hours p.r.n., metoprolol 12.5 mg b.i.d., Brilinta 90 mg b.i.d. Diabetes medications [place] [address] DISCHARGE SUMMARY Name: JACQUE GAR Room: [address]#: [id number] Admission: 12/27/19 Attend Phys: Willie Albrecht MD Discharge: 12/28/19 Date of : 72 Report #: [id number] 0.4 mg sublingual p.r.n. DISPOSITION: The patient will follow up in the Cardiology office in 1-2 weeks. <ELECTRONICALLY SIGNED> By: Sajan Manjarrez MD, [facility] 12/29/19 0829 0959 [facility] Center[facility]i Manjarrez MD, [facility]ERNA /nt
== END 2019-12-28 12:26 | disposition home or self-care (01) | DRG 247 ==
LOC: M.CL 02:30 → M.ERS 02:30 → M.CL 04:01 → M.TBA-CV 04:05 → M.2W 04:05 → M.ICU 04:48 → M.2W 18:30
PROVIDERS: Emergency Medicine; ADMIT Internal Medicine Cardiovascular Disease
PROC: 4A023N7 Measurement of Cardiac Sampling and Pressure, Left Heart, Percutaneous Approach (ICD-10-PCS; principal; 2019-12-27)
PROC: B215YZZ Fluoroscopy of Left Heart using Other Contrast (ICD-10-PCS; principal; 2019-12-27)
PROC: B211YZZ Fluoroscopy of Multiple Coronary Arteries using Other Contrast (ICD-10-PCS; principal; 2019-12-27)
PROC: 027034Z Dilation of Coronary Artery, One Artery with Drug-eluting Intraluminal Device, Percutaneous Approach (ICD-10-PCS; principal; 2019-12-27)
DX: I21.4 Non-ST elevation (NSTEMI) myocardial infarction (principal); E78.5 Hyperlipidemia, unspecified; I10 Essential (primary) hypertension; E78.00 Pure hypercholesterolemia, unspecified; F41.9 Anxiety disorder, unspecified; I25.10 Atherosclerotic heart disease of native coronary artery without angina pectoris; M19.90 Unspecified osteoarthritis, unspecified site; E11.40 Type 2 diabetes mellitus with diabetic neuropathy, unspecified; Z79.4 Long term (current) use of insulin; Z79.82 Long term (current) use of aspirin; Z88.8 Allergy status to other drugs, medicaments and biological substances; Z79.899 Other long term (current) drug therapy

== ENCOUNTER 2020-01-15 09:19 | Observation (INO) | payer BC ==
[2020-01-15] VITALS (17 sets, daily range): BP systolic 100–1108; BP diastolic 56–82
[~2020-01-15] VITALS: Ht 162.6 cm; Wt 78.9 kg
--- NOTE | ~2020-01-15 | D ---
[address] [address] DISCHARGE SUMMARY Name: JACQUE GAR Room: [address] Tatiana Archer#: [id number] Admission: 01/15/20 Attend Phys: Oniel Witt MD, Discharge: 01/16/20 Date of : 72 Report #: [id number] THIS REPORT FOR: //name// cc: Jose Enrique Cui Russell J. DO ~ THIS REPORT FOR: //name// CC: Oniel Cui DATE OF SERVICE: 01/16/2020 FINAL DISCHARGE DIAGNOSES: 1. Unstable angina. 2. Status post recent infarction. 3. Coronary artery disease. 4. Hypertension. 5. Hyperlipidemia. 6. Type 2 diabetes. PROCEDURES: 01/15/2020 -- left heart catheterization, left ventriculography, selective coronary arteriography and percutaneous coronary intervention with deployment of drug-eluting stent in the proximal-mid LAD. The patient is a pleasant 49-year-old female with aggressive coronary artery disease, underlying hypertension, hyperlipidemia and diabetes. Slightly less than 2 months ago, she presented with acute myocardial infarction interrupted by stenting of the proximal-mid circumflex. She was also noted to have a high-grade proximal-mid LAD stenosis and a chronic total occlusion of the right coronary artery at that time. The latter lesions were not approached in the acute setting. She has continued to experience chest discomfort, compatible angina with modest activity. In this context, recatheterization was performed on 01/15/2020. This revealed 30% proximal circumflex narrowing with widely patent proximal-mid circumflex stent with 80% tubular mid LAD narrowing and chronic total occlusion of the right coronary artery with left to right collaterals filling the distal right coronary artery. Left ventricular function was normal, ejection fraction of 65%. Given this data, I performed PCI, deploying 1 drug-eluting stent, 2.25 x 38 mm [place] drug-eluting stent in the mid LAD, post-dilated to 2.75 mm in the proximal and midportion with 10% residual narrowing and WOODROW 3 flow of the distal vessel. Troponin lauren inconsequentially to 0.07. Additional lab revealed sodium 136, potassium 3.8, BUN 16, creatinine 0.7, glucose 124, hemoglobin 12.3, white blood cell count 9800 with 212,000 platelets. The patient ambulated in the hallways without difficulty [place] [address] DISCHARGE SUMMARY Name: JACQUE GAR [address] [id number] Admission: 01/15/20 Attend Phys: Oniel Witt MD, Discharge: 01/16/20 Date of : 72 Report #: [id number] hemostasis at the right femoral site of catheterization. DISCHARGE MEDICATIONS: The patient was discharged to home on the following medications: Amphetamine or Adderall 20 mg tablets 1 b.i.d., aspirin 81 mg daily, atorvastatin 80 mg daily, duloxetine or Cymbalta 90 mg daily, Jardiance 10 mg daily, gabapentin 300 mg t.i.d., metformin 500 mg b.i.d. to be resumed on 01/18/2020, metoprolol tartrate 25 mg every 12 hours, ticagrelor or Brilinta 90 mg b.i.d., inhaled albuterol 1-2 puffs b.i.d. p.r.n. wheezing, diazepam 2.5 mg to 5 mg b.i.d. p.r.n., Vistaril 100 mg every 6 hours p.r.n., and propranolol or Inderal 40 mg on a p.r.n. basis. The patient is scheduled to return to see our nurse practitioner, Tiki Colon, on 02/09/[address] Manjarrez on 04/01/2020 at 1600. Therefore, the patient is discharged to home in stable condition on the aforementioned medications with followup as described above. By: 1106 1122Oniel Witt MD, [facility] /nt
[~2020-01-15 09:19] MED LIST changes: +ADDERALL 20 MG20 MG PO; +ASPIR 8181 MG PO; +BRILINTA90 MG PO; +CYMBALTA30 MG PO; +LIPITOR 40 MG T40 M1 PO; +LIPITOR80 MG PO; +LOPRESSOR25 PO; +NEURONTIN 300M300 M2 PO; +VISTARIL50 MG PO
[2020-01-15 11:31] LABS: HEMATOCRIT 41.2 % (37.0-47.0); HEMOGLOBIN 13.9 gm/dL (12.0-15.0); MCH 31.4 pg (26.0-34.0); MCHC 33.8 g/dL (28.0-37.0); MPV 8.1 fl. (7.2-11.1); RBC 4.43 mil/uL (4.20-5.00); RDW-CV 13.4 % (10.5-14.5); WBC 11.6 thou/uL (4.0-11.0)
[2020-01-15 11:37] LABS: APTT 30.2 Seconds (25.0-31.3); INR 0.9; PROTIME 9.7 Seconds (9.20-11.50)
[2020-01-15 11:40] LABS: CHOLESTEROL 222 mg/dL (<200); HDL CHOLESTEROL 41 mg/dL (>40); TC:HDL 5.4 Ratio (Not establshd); TRIGLYCERIDE 472 mg/dL (<150); VLDL 94 mg/dL (<40)
[2020-01-15 11:41] LABS: SERUM ASSESSMENT Clear
[2020-01-15 11:44] LABS: LDL CHOLESTEROL ND mg/dL (<100)
[2020-01-15 11:53] LABS: ALBUMIN 3.3 g/dL (3.4-5.0); CALCIUM 8.4 mg/dL (8.5-10.1); CREATININE 0.8 mg/dL (0.6-1.3); TOTAL BILIRUBIN 0.2 mg/dL (<0.1-1.0); TOTAL PROTEIN 7.7 g/dL (6.4-8.2)
[2020-01-15] MEDS ORDERED: METOPROLOL TART25 MG PO (13:21)
[2020-01-15] MEDS ORDERED: METFORMIN HCL500 M3 PO (13:22)
[2020-01-15] MEDS ORDERED: JARDIANCE10 MG PO (13:23)
--- NOTE | 2020-01-15 13:30 | NUR ---
PT ADMITTED TO ROOM 222 VIA CART FROM FREEZING MACHINE OPERATOR AT APPROX 1330, REPORT RECEIVED FROM FREEZING MACHINE OPERATOR RN. PT ORIENTED TO ROOM AND CALL LIGHT, ADMISSION ASSESSMENT AND HX COMPLETE, REFER TO CHARTING. HOME MEDS RECONCILED AND RESTARTED. SEPSIS SCREENING COMPLETE, NEGATIVE. PT INSTRUCTED ON IMMOBILIZATION TO RLE, PT COMMUNICATES UNDERSTANDING OF TEACHING. POST CARDIAC CATH ASSESSMENT AND VITALS CHARTED. RT GROIN CATH SITE IS CLEAN, DRY, INTACT W/ NO HEMATOMA NOTED. PT ON BEDREST UNTIL 1844. PT C/O PAIN TO RT GROIN, PRN TYLENOL GIVEN W/ NO RELIEF. DR FRIEND NOTIFIED AND ORDERS RECEIVED FOR NORCO X2 DOSES, NORCO GIVEN W/ RELIEF. MEDS PER OCT, HOURLY ROUNDING OBSERVED, WILL CONTINUE POC.
[2020-01-15] MEDS ORDERED: VALIUM5 MG PO (14:08)
[2020-01-15] MEDS ORDERED: PROAIR HFA8.5 GM INH (14:46)
--- NOTE | 2020-01-15 15:17 | EKG ---
[place] [address] ELECTROCARDIOGRAM REPORT Name: JACQUE GAR Room: [address] M.R.#: [id number] Admission: 01/15/20 Attend Phys: Luis Eduardo Greene Discharge: Date of : 72 Date of Service: 01/15/20 1114 Report #: [id number] THIS REPORT FOR: //name// [facility] Test Date: 2020-01-15 Test Time: 11:14:49 Pat Name: JACQUE GAR Department: Room: [facility] Gender: F Hot Car Operator: : 1970 Requested By: Oniel Witt Order Number: [id number] Cha MD: Oniel Witt Measurements Intervals [place] Rate: 78 P: 71 [place]: 153 QRS: 46 QRSD: 101 T: 24 QT: 405 QTc: 462 Interpretive Statements Sinus rhythm Compared to ECG 12/28/2019 04:51:19 Prolonged QT interval no longer present Electronically Signed On 01-15-2020 15:16:06 CDT by Oniel Witt [email or web address] <ELECTRONICALLY SIGNED> By: Oniel Witt MD, [facility] 01/15/20 1516 1114 1114 Oniel Witt MD, [facility] /EPI
--- NOTE | 2020-01-15 15:19 | EKG ---
[place] [address] ELECTROCARDIOGRAM REPORT Name: JACQUE GAR Room: [address] M.R.#: [id number] Admission: 01/15/20 Attend Phys: Luis Eduardo Greene Discharge: Date of : 72 Date of Service: 01/15/20 1308 Report #: [id number] THIS REPORT FOR: //name// [facility] Test Date: 2020-01-15 Test Time: 13:08:42 Pat Name: JACQUE GAR Department: Room: [facility] Gender: F Body Former: : 1970 Requested By: Oniel Witt Order Number: [id number] Cha MD: Oniel Witt Measurements Intervals [place] Rate: 75 P: 75 [place]: 157 QRS: 55 QRSD: 106 T: 27 QT: 417 QTc: 466 Interpretive Statements Sinus rhythm Compared to ECG 12/28/2019 04:51:19 Prolonged QT interval no longer present Electronically Signed On 01-15-2020 15:17:13 CDT by Oniel Witt [email or web address] <ELECTRONICALLY SIGNED> By: Oniel Witt MD, [facility] 01/15/20 1517 1308 1308 Oniel Witt MD, [facility] /EPI
--- NOTE | 2020-01-15 15:51 | CARD ---
[address] [address] CARDIAC CATH REPORT Name: JACQUE GAR Room: [address] MShane#: [id number] Admission: 01/15/20 Attend Phys: Oniel Witt MD, Discharge: Date of : 72 Report #: [id number] THIS REPORT FOR: //name// cc: Jose Enrique Cui Russell J. DO ~ APPROVED REPORT Study performed: 01/15/2020 10:50:00 Patient Details Patient Status: Out-Patient Room #: The patient is a 49 year-old female Event Personnel Oniel Witt Wood Room Supervisor, Mat Daly RN RN, Rodolfo Buck Reeves, Adam RTR Monitor, Rosie Garrido RN central office supervisor Performed Left Heart Cath w/or w/o Coronaries [id number] [facility] w/wo Plasty Single LAD [id number] Hemostasis w/ Angioseal Indication Unstable angina Risk Factors Hypercholesterolemia, Hypertension Previous Procedures/Diagnoses Previous PCI, Previous UT Admission/Lab Medications/Medications given during procedure Fentanyl IV 25 mcg, Midazolam (Versed) IV 2 mg, Lidocaine Subcut 20 ml, Midazolam (Versed) IV 1 mg, Angiomax IV 12 ml, Angiomax IV 27.51 ml per hr, Nitroglycerin IC 100 mcg, Nitroglycerin IC 150 mcg, Ticagrelor PO 90 mg Procedure Narrative The patient was brought electively to the Cardiac Catheterization Laboratory and was prepped and draped in a sterile manner. The right femoral was infiltrated with 2% Lidocaine subcutaneous anesthesia. A Grabill 6 FR sheath was inserted into the right femoral artery. Coronary angiography was performed using coronary diagnostic catheters. The right coronary system was accessed and visualized with a Diagnostic JR4 6Fr catheter. The left coronary system was accessed and visualized with a Diagnostic JL4 6Fr catheter[place] [address] CARDIAC CATH REPORT Name: RINJACQUE Althea Room: [address]#: [id number] Admission: 01/15/20 Attend Phys: Oniel Witt MD, Discharge: Date of : 72 Report #: [id number] was accessed and visualized with a Diagnostic Pigtail Straight 6Fr catheter. Left ventriculogram was performed in LEWIS projection. Pre-demployment femoral angiogram was performed . Closure device was deployed with a 6 Fr Angioseal. The patient tolerated the procedure well and there were no complications associated with the procedure. There was no hematoma. Intraoperative Conscious Sedation Sedation start time: 1141 Case end Time: 1237 Fentanyl 75 mcg Versed 4 mg Fluoro Time: 14.4 minutes Dose: DAP 055403 cGycm2 1533.81 mGy Contrast Type and Amount: Visipaque 370 ml Diagnostic Cath Left Main 0% narrowing LAD 30% proximal LAD narrowing with 80% tubular proximalmid LAD stenosis Circumflex 30% narrowing of the most proximal circumflex followed by widely patent proximal/mid circumflex stent Right Coronary 90% proximal and mid right coronary narrowing with 100% distal occlusion with [id number] collaterals filling the distal right coronary artery Left Ventriculography The left ventricle is normal in size with normal contractility. The left ventricular ejection fraction is estimated to be 65%. Left ventricular wall motion abnormalities are not present. There is no mitral insufficiency. Hemodynamics The aortic pressure is 111/59 mmHg with a mean of 82 mmHg. The left ventricular pressure is 115/-4 mmHg with a mean of mmHg. The left ventricular end diastolic pressure is 12 mmHg. PCI Technique Lesion Percutaneous coronary intervention was performed on the Proximalmid left anterior descending artery segment. The lesion stenosis prior to intervention was 80% with WOODROW 3 flow. A 6FR XB 3.0 100CM Guide Catheter was used to engage the Left ostium. A ProwaterFlex 180CM Interventional Guidewire was used to cross the lesion. BALLOON DILATION A Balloon catheter Euphora NC 2.25x12 [place] [address] CARDIAC CATH REPORT Name: JACQUE GAR Althea Room: [address] M.RHonorio#: [id number] Admission: 01/15/20 Attend Phys: Oniel Witt MD, Discharge: Date of : 72 Report #: [id number] 10.00atm for 11seconds. Additional Inflation: 12.00atm for 9seconds. Additional Inflation: 10.00atm for 7seconds. STENT DEPLOYMENT A drug-eluting stent Romario RX Stent 2.14J10ti was inserted and inflated up to 12.00atm for 12seconds. Additional Inflation: 16.00atm for 10seconds. Additional Inflation: 16.00atm for 10seconds. POST STENT DEPLOYMENT BALLOON DILATION A Balloon catheter NC Euphora 2.5x12 was inserted and inflated up to 12.00atm for 8seconds. Additional Inflation: 15.00atm for 9seconds. Additional Inflation: 17.00atm for 9seconds. Additional Inflation: 20.00 alexsander for 10 seconds. Additional Inflation: 24.00 alexsander for 9 seconds. A Balloon Catheter NC Trek RX 2.75 X 12 was inserted and inflated to16 alexsander for 12 seconds. Additional Inflation: 18.00 alexsander for 11 seconds. Additional Inflation: 20.00 alexsander for 11 seconds. Additional Inflation: 14.00 alexsander for 9 seconds. Final angiography reveals 10 % stenosis with WOODROW 3 flow. Conclusion 1. Significant coronary artery disease characterized by the following: A 30% proximal LAD narrowing with 80% tubular proximalmid LAD stenosis B 30% narrowing of the very proximal circumflex followed by widely patent proximalmid circumflex stent C dominant right coronary with 90% proximal and mid vessel stenosis and 100% distal occlusion with left to right collaterals filling the distal right coronary artery 2. Normal left ventricular systolic function, estimated ejection fraction 65% 3. Normal left-sided hemodynamics study 4. Successful PCI with deployment of a drug-eluting stent at the site of 80% tubular proximalmid LAD stenosis with 10% residual narrowing and WOODROW-3 flow to the distal vessel Recommendations Cardiac Risk Reduction Program [address] [address] CARDIAC CATH REPORT Name: JACQUE GAR Room: [address] Ttaiana Archer#: [id number] Admission: 01/15/20 Attend Phys: Oniel Witt MD, Discharge: Date of : 72 Report #: [id number] Aggressive Medical Therapy Medications Administered Ticagrelor Diagnostic Cath Approved by: Oniel Witt MD Date/Time: 01/15/2020 15:47:50 <ELECTRONICALLY SIGNED> By: Oniel Witt MD, [facility] 01/15/20 1549 1549 1549Jomagen Witt MD, FAC /INF
--- NOTE | 2020-01-15 18:25 | NUR ---
NO ACUTE CHANGES THROUGHOUT SHIFT, PT CONTINUES TO TRACE SR ON THE BIOINFORMATICS ANALYST AND SAT UPPER 90'S ON RA. CARDIAC CATH SITE IS CLEAN, DRY AND INTACT W/ NO HEMATOMA NOTED. PT IS ABLE TO GET UP AT 1845 AND HAS ONE MORE SET OF VITALS DUE AT 1925 BEFORE BEING DONE W/ POST-CATH VITALS. MEDS PER OCT, HOURLY ROUNDING OBSERVED, WILL CONTINUE POC.
[2020-01-16 00:14] VITALS: BP 110/64
[2020-01-16 03:57] VITALS: BP 113/83
[2020-01-16 05:17] LABS: HEMOGLOBIN 12.3 gm/dL (12.0-15.0); MCV 92.8 fL (80.0-100.0); MPV 7.9 fl. (7.2-11.1); RDW-CV 13.7 % (10.5-14.5)
[2020-01-16 05:24] LABS: HEMATOCRIT 36.1 % (37.0-47.0); MCH 31.7 pg (26.0-34.0); MCHC 34.1 g/dL (28.0-37.0); RBC 3.88 mil/uL (4.20-5.00); WBC 9.8 thou/uL (4.0-11.0)
[2020-01-16 05:39] LABS: ALBUMIN 2.8 g/dL (3.4-5.0); CALCIUM 8.2 mg/dL (8.5-10.1); CREATININE 0.7 mg/dL (0.6-1.3); POTASSIUM 3.8 mmol/L (3.5-5.1); TOTAL BILIRUBIN 0.2 mg/dL (<0.1-1.0); TOTAL PROTEIN 6.4 g/dL (6.4-8.2); TROPONIN-I LEVEL 0.07 ng/mL (<0.06)
[2020-01-16 08:00] VITALS: BP 105/72
--- NOTE | 2020-01-16 10:48 | NUR ---
ASSUMED PT CARE AT 0730, PT RESTING IN BED, SATTING 97% ON RA, TRACING SR ON THE RESTAURANT DELIVERY DRIVER AND HAD NO C/O PAIN. RT GROIN CARDIAC CATH SITE INSPECTED AND FOUND TO BE CLEAN, DRY, INTACT AND FREE FROM HEMATOMA. PT GOAL IS TO DC TO HOME TODAY AND REMAIN FREE FROM PAIN. AM ASSESSMENT CHARTED, MEDS PER MAR, HOURLY ROUNDING OBSERVED, WILL CONTINUE POC.
[2020-01-16 13:11] VITALS: BP 123/78
--- NOTE | 2020-01-16 13:47 | NUR ---
DC ORDERS RECEIVED. DC INSTRUCTIONS, AND F/U APPTS GIVEN TO PT, PT COMMUNICATES UNDERSTANDING OF DC TEACHING. BLEACH PACKER AND IV REMOVED. PT DC'D W/ ALL PERSONAL BELONGINGS AND PAPERWORK VIA WC W/ NURSING STAFF TO BOYFRIEND'S PERSONAL VEHICLE.
--- NOTE | 2020-01-17 15:31 | EKG ---
[place] [address] ELECTROCARDIOGRAM REPORT Name: JACQUE GAR Room: [address] M.R.#: [id number] Admission: 01/15/20 Attend Phys: Luis Eduardo Greene Discharge: 01/16/20 Date of : 72 Date of Service: 01/16/20 0842 Report #: [id number] THIS REPORT FOR: //name// [facility] Test Date: 2020-01-16 Test Time: 08:42:54 Pat Name: JACQUE GAR Department: Room: [facility] Gender: F Material Inspector: BHARATH : 1970 Requested By: Oniel Witt Order Number: [id number] Reading MD: Nahun Pierson Measurements Intervals [place] Rate: 71 P: [place]: QRS: 143 QRSD: 106 T: -73 QT: 402 QTc: 437 Interpretive Statements Right and left arm electrode reversal, interpretation assumes no reversal Accelerated junctional rhythm Right axis deviation Low voltage, extremity and precordial leads Lead(s) II were not used for morphology analysis Compared to ECG 01/15/2020 13:08:42 Accelerated junctional rhythm now present Right-axis deviation now present Low QRS voltage now present Sinus rhythm no longer present Electronically Signed On 01-17-2020 15:29:32 CDT by Nahun Pierson [email or web address] <ELECTRONICALLY SIGNED> By: Dustin Pierson MD, [facility] 01/17/20 1529 1 Dustin Pierson MD, [facility] /EPI
== END 2020-01-16 13:45 | disposition home or self-care (01) ==
LOC: M.CL 09:19 → M.TBA-CV 12:59 → M.2W 12:59
PROVIDERS: ADMIT Internal Medicine
DX: I25.110 Atherosclerotic heart disease of native coronary artery with unstable angina pectoris (principal); I10 Essential (primary) hypertension; E78.5 Hyperlipidemia, unspecified; E11.9 Type 2 diabetes mellitus without complications; I25.2 Old myocardial infarction

== ENCOUNTER 2020-02-08 19:16 | Observation (INO) | payer BC ==
[~2020-02-08] VITALS: Ht 160 cm; Wt 75.7 kg
[~2020-02-08 19:16] MED LIST changes: +JARDIANCE10 MG PO; +METFORMIN HCL500 M3 PO; +METOPROLOL TART25 MG PO; +PROAIR HFA8.5 GM INH; +VALIUM5 MG PO
[2020-02-08 19:30] VITALS: BP 136/83
[2020-02-08] MEDS ORDERED: WELLBUTRIN SR150 MG PO (19:38)
[2020-02-08 19:55] LABS: ABSOLUTE BASOPHILS 0.1 thou/uL (0.0-0.2); ABSOLUTE EOSINOPHILS 0.4 thou/uL (0.0-0.7); ABSOLUTE LYMPHOCYTES 2.2 thou/uL (0.8-5.3); ABSOLUTE MONOCYTES 0.9 thou/uL (0.0-1.2); ABSOLUTE NEUTROPHILS 5.4 thou/uL (1.6-8.1); EOSINOPHILS 4.9 %; HEMATOCRIT 42.2 % (37.0-47.0); HEMOGLOBIN 14.2 gm/dL (12.0-15.0); MCH 31.1 pg (26.0-34.0); MCHC 33.6 g/dL (28.0-37.0); MCV 92.6 fL (80.0-100.0); MONOCYTES 10.3 %; MPV 7.6 fl. (7.2-11.1); NUCLEATED RBCS 0 /100WBC; PLATELET COUNT* 319 thou/uL (150-400); POLYS 59.8 %; RBC 4.56 mil/uL (4.20-5.00); RDW-CV 14.4 % (10.5-14.5)
[2020-02-08 20:03] LABS: PROTIME 10.2 Seconds (9.20-11.50)
[2020-02-08 20:06] LABS: CALCIUM 9.2 mg/dL (8.5-10.1); CREATININE 0.8 mg/dL (0.6-1.3); POTASSIUM 4.6 mmol/L (3.5-5.1)
[2020-02-08 20:23] LABS: ALBUMIN 3.6 g/dL (3.4-5.0); MAGNESIUM 1.9 mg/dL (1.8-2.4); TOTAL BILIRUBIN 0.3 mg/dL (<0.1-1.0); TOTAL PROTEIN 8.5 g/dL (6.4-8.2)
[2020-02-08 20:26] LABS: URINE BILIRUBIN NEGATIVE (Negative); URINE BLOOD NEGATIVE (Negative); URINE CLARITY CLEAR; URINE COLOR YELLOW; URINE GLUCOSE-RANDOM 3+ (Negative); URINE KETONES NEGATIVE (Negative); URINE LEUKOCYTES-REFLEX NEGATIVE (Negative); URINE NITRITE-REFLEX NEGATIVE (Negative); URINE PROTEIN NEGATIVE (Negative); URINE SPECIFIC GRAVITY 1.015 (1.005-1.030); URINE UROBILINOGEN 0.2 E.U./dl (0.2-1.0)
[2020-02-08 22:36] VITALS: BP 117/78
[2020-02-08 22:55] VITALS: BP 129/82
[2020-02-08] MEDS ORDERED: NALTREXONE HCL50 MG PO (23:11)
[2020-02-09] VITALS: BP 118/76
[2020-02-09 04:00] VITALS: BP 102/69
--- NOTE | 2020-02-09 05:35 | NUR ---
ASSUMED CARE OF PT AT 2245. PT IS ALERT AND ORIENTED. VSS. PERRLA. NO COMPLAINTS OF PAIN. STEADY GAIT. PT IS IN SINUS RYTHM ON THE TELEMETRY. PT IS RESTING COMFORTABLY IN BED. RESPIRATIONS ARE EVEN AND NONLABORED. WILL CONTINUE TO MONITOR PT.
--- NOTE | 2020-02-09 07:15 | NUR ---
CHANGE OF SHIFT, BEDSIDE REPORT GIVEN PATIENT SEEN AT BEDSIDE, IN BED WATCHING TV ASSUMED PATIENT CARE
[2020-02-09 08:00] VITALS: BP 112/69
[2020-02-09 12:11] VITALS: BP 101/60
--- NOTE | 2020-02-09 15:00 | NUR ---
Pt is A&O. Resides at home with SO and kids. Independent and active. Pt continues to smoke. No DME. No hx of HH or SNF. Goal is home at dc. Cardiology following, anticipate dc tomorrow.
--- NOTE | 2020-02-09 15:27 | EKG ---
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: JANETTE : 1970 Requested By: Leilani Villafana Order Number: [id number] Cha MD: Sajan Manjarrez Measurements Intervals [place] Rate: 63 P: 54 MO: 138 QRS: 54 QRSD: 104 T: 30 QT: 411 QTc: 421 Interpretive Statements Sinus rhythm Compared to ECG 01/16/2020 08:42:54 Accelerated junctional rhythm no longer present Right-axis deviation no longer present Electronically Signed On 02-09-2020 15:25:55 CDT by Sajan Manjarrez [email or web address] <ELECTRONICALLY SIGNED> By: Sajan Manjarrez MD, [facility] 02/09/20 1525 34 34 Sajan Manjarrez MD, [facility] /EPI
[2020-02-09 16:02] VITALS: BP 109/74
[2020-02-09 19:30] VITALS: BP 110/78
[2020-02-10] VITALS: BP 117/75
--- NOTE | 2020-02-10 02:39 | NUR ---
ASSUMED CARE OF PT AT 1900. PT IS ALERT AND ORIENTED. VSS. PERRLA. NO COMPLAINTS OF PAIN. STEADY GAIT. PT IS IN SINUS RYTHM ON THE TELEMETRY. PT IS RESTING COMFORTABLY IN BED. RESPIRATIONS ARE EVEN AND NONLABORED. WILL CONTINUE TO MONITOR PT.
[2020-02-10 03:51] VITALS: BP 106/71
[2020-02-10 08:00] VITALS: BP 120/85
--- NOTE | 2020-02-10 10:14 | NUR ---
assumed pt care report received fr nurse pt is aox4 on ra. denies sob or pain. vss. ready to go home per cardio. call light at reach. will continue to monitor
[2020-02-10] MEDS ORDERED: IMDUR 60 MG TAB60 M1 PO (10:15)
[2020-02-10 10:27] VITALS: BP 120/85
[2020-02-10 10:38] VITALS: BP 120/85
--- NOTE | 2020-02-10 11:06 | NUR ---
DISCHARGE ORDERED. DC INSTRUCTIONS GIVEN. IV LINE REMOVED. HEART MONITOR RETRIEVED
[2020-02-10] MEDS ORDERED: NICOTINE TRANSD14 M1 TRANSDERM (11:20)
--- NOTE | 2020-02-10 11:44 | NUR ---
PT LEFT UNIT ACCOMPANIED BY THIS NURSE AT 1140 . AMBUULATORY.
== END 2020-02-10 11:40 | disposition home or self-care (01) ==
LOC: M.ERS 19:16 → M.2W 21:34 → M.TBA-ER 21:34 → M.2W 22:51
PROVIDERS: Emergency Medicine; ADMIT Internal Medicine; ATTEND Internal Medicine
DX: R07.89 Other chest pain (principal); I10 Essential (primary) hypertension; E11.9 Type 2 diabetes mellitus without complications; E78.5 Hyperlipidemia, unspecified; I25.10 Atherosclerotic heart disease of native coronary artery without angina pectoris; I25.2 Old myocardial infarction; F41.9 Anxiety disorder, unspecified; F32.9 Major depressive disorder, single episode, unspecified

== ENCOUNTER 2020-03-25 12:56 | Observation (INO) | payer BC ==
[~2020-03-25] VITALS: Ht 160 cm; Wt 86.0 kg
[~2020-03-25 12:56] MED LIST changes: +IMDUR 60 MG TAB60 M1 PO; +NALTREXONE HCL50 MG PO; +NICOTINE TRANSD14 M1 TRANSDERM; +WELLBUTRIN SR150 MG PO
[2020-03-25 13:14] VITALS: BP 114/70
[2020-03-25 13:31] LABS: ABSOLUTE EOSINOPHILS 0.4 thou/uL (0.0-0.7); ABSOLUTE MONOCYTES 0.8 thou/uL (0.0-1.2); ABSOLUTE NEUTROPHILS 3.3 thou/uL (1.6-8.1); BASOPHILS 0.7 %; EOSINOPHILS 6.4 %; HEMATOCRIT 39.8 % (37.0-47.0); HEMOGLOBIN 13.4 gm/dL (12.0-15.0); LYMPHOCYTES 30.6 %; MCH 30.8 pg (26.0-34.0); MCHC 33.6 g/dL (28.0-37.0); MCV 91.6 fL (80.0-100.0); MONOCYTES 12.2 %; MPV 7.6 fl. (7.2-11.1); NUCLEATED RBCS 0 /100WBC; PLATELET COUNT* 243 thou/uL (150-400); POLYS 50.1 %; RBC 4.35 mil/uL (4.20-5.00); RDW-CV 14.4 % (10.5-14.5); WBC 6.7 thou/uL (4.0-11.0)
[2020-03-25 13:40] LABS: CALCIUM 8.6 mg/dL (8.5-10.1); POTASSIUM 4.5 mmol/L (3.5-5.1)
[2020-03-25 13:44] LABS: ALBUMIN 3.4 g/dL (3.4-5.0); TOTAL BILIRUBIN 0.1 mg/dL (<0.1-1.0); TOTAL PROTEIN 7.7 g/dL (6.4-8.2)
--- NOTE | 2020-03-25 15:17 | EKG ---
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: PR : 1970 Requested By: Randy Graham Order Number: [id number] MD: Oniel Witt Measurements Intervals [place] Rate: 76 P: 70 MS: 166 QRS: 51 QRSD: 109 T: -6 QT: 393 QTc: 442 Interpretive Statements Sinus rhythm Borderline repolarization abnormality Baseline wander in lead(s) II,III,aVL,aVF Compared to ECG 02/08/2020 19:35:39 No significant changes Electronically Signed On 03-25-2020 15:17:32 CDT by Oniel Witt [email or web address] <ELECTRONICALLY SIGNED> By: Oniel Witt MD, [facility] 03/25/20 1517 1306 1306 Oniel Witt MD, [facility] /EPI
[2020-03-25 17:26] LABS: CHOLESTEROL 173 mg/dL (<200); HDL CHOLESTEROL 40 mg/dL (>40); LDL CHOLESTEROL 79 mg/dL (<100); SERUM ASSESSMENT CLEAR; TC:HDL 4.3 Ratio (Not establshd); TRIGLYCERIDE 271 mg/dL (<150); VLDL 54 mg/dL (<40)
[2020-03-25 19:25] VITALS: BP 115/70
[2020-03-25 19:40] VITALS: BP 103/64
[2020-03-26] VITALS (10 sets, daily range): BP systolic 114–146; BP diastolic 72–85
--- NOTE | 2020-03-26 06:18 | NUR ---
RECEIVED PT FRO ED AT APPROX 1940. PT IS AWAKE AND ORIENTED X4. PT IS TRACING SR ON THE RADIOACTIVE WASTE DISPOSAL DISPATCHER. PT DENIES CHEST PAIN , BUT C/O HEAVINESS ON THE SHOULDERS THAT RADIATES TO BOTH ARMS. PT IS ADVISED TO HAVE NOTHING BY MOUTH AFTER MIDNIGHT FOR CARDIOLOGY. PT IS ABLE TO SLEEP THROUGH THE NIGHT. NO OTHER COMPLAINTS OF THIS THIME. CALL LIGHT WITHIN REACH. HOURLY ROUNDING DONE FOR PT SAFETY.
--- NOTE | 2020-03-26 07:15 | NUR ---
CHANGE OF SHIFT BEDSIDE REPORT GIVEN PATIENT SEEN AT BEDSIDE, IN BED ASLEEP ASSUMED PATIENT CARE
--- NOTE | 2020-03-26 11:21 | EKG ---
[place] [address] ELECTROCARDIOGRAM REPORT Name: JACQUE GAR Room: [address] M.R.#: [id number] Admission: 03/25/20 Attend Phys: Luis Eduardo Greene Discharge: Date of : 72 Date of Service: 03/25/20 190 Report #: [id number] THIS REPORT FOR: //name// [facility] ED Test Date: 2020-03-25 Test Time: 19:03:01 Pat Name: JACQUE GAR Department: Room: [facility] Gender: F Occupational Therapy Instructor: RICHARD : 1970 Requested By: Randy Graham Order Number: [id number] MD: Oniel Witt Measurements Intervals [place] Rate: 74 P: 70 MD: 169 QRS: 44 QRSD: 106 T: 18 QT: 400 QTc: 444 Interpretive Statements Sinus rhythm Compared to ECG 03/25/2020 13:06:42 No significant changes Electronically Signed On 03-26-2020 11:20:56 CDT by Oniel Witt [email or web address] <ELECTRONICALLY SIGNED> By: Oniel Witt MD, [facility] 03/26/20 1120 [id number] Oniel Witt MD, [facility] /EPI
[2020-03-27] VITALS: BP 117/67
[2020-03-27 04:00] VITALS: BP 108/65
[2020-03-27 04:42] LABS: HEMATOCRIT 34.2 % (37.0-47.0); HEMOGLOBIN 11.5 gm/dL (12.0-15.0); MCH 30.9 pg (26.0-34.0); MCHC 33.6 g/dL (28.0-37.0); MCV 91.9 fL (80.0-100.0); MPV 7.8 fl. (7.2-11.1); RBC 3.72 mil/uL (4.20-5.00); RDW-CV 14.3 % (10.5-14.5); WBC 7.5 thou/uL (4.0-11.0)
[2020-03-27 05:00] LABS: ALBUMIN 2.7 g/dL (3.4-5.0); CALCIUM 7.4 mg/dL (8.5-10.1); CREATININE 0.9 mg/dL (0.6-1.3); POTASSIUM 3.6 mmol/L (3.5-5.1); TOTAL BILIRUBIN 0.1 mg/dL (<0.1-1.0); TOTAL PROTEIN 6.3 g/dL (6.4-8.2)
[2020-03-27 05:07] LABS: TROPONIN-I LEVEL 1.15 ng/mL (<0.06)
--- NOTE | 2020-03-27 07:10 | NUR ---
CHANGE OF SHIFT, BEDSIDE REPORT GIVEN PATIENT SEEN AT BEDSIDE, IN BED ASLEEP ASSUMED PATIENT CARE
--- NOTE | 2020-03-27 07:25 | NUR ---
ASSUMED CARE OF PT AFTER REPORT AT 1930. PT A&OX4. VSS. PHYSICAL ASSESSMENT COMPLETED AND CHARTED. PT ON RA. PT TRACING SR ON TELE. PT UPADLIB TO RESTROOM. PT COMPLAINED OF BACK PAIN-MED GIVEN PER OCT. POST CATH SITE TO RIGHT GROIN CLEAN, DRY & INTACT. PT ABLE TO SLEEP WELL ON BED. CALL LIGHT WITHIN REACH.
[2020-03-27 08:00] VITALS: BP 129/83
[2020-03-27 10:39] VITALS: BP 129/83
[2020-03-27] MEDS ORDERED: EFFIENT10 MG PO (10:56)
--- NOTE | 2020-03-27 11:00 | NUR ---
DISCHARGE TO HOME ALL DISCHARGE INSTRUCTIONS GIVEN, ACKNWLEDGED, SIGNED COPIES GIVEN IV AND HEART MONITOR REMOVED PATIENT ESCORTED OUT TO WAITING CAR
--- NOTE | 2020-03-27 11:00 | EKG ---
[place] [address] ELECTROCARDIOGRAM REPORT Name: JACQUE GAR Room: [address]R.#: [id number] Admission: 03/25/20 Attend Phys: Luis Eduardo Greene Discharge: Date of : 72 Date of Service: 03/27/20 0557 Report #: [id number] THIS REPORT FOR: //name// [facility] Test Date: 2020-03-27 Test Time: 05:57:52 Pat Name: JACQUE GAR Department: Room: [address] Gender: F Refrigeration Mechanic: MARTINEZ : 1970 Requested By: Oniel Witt Order Number: [id number] Cha MD: Oniel Witt Measurements Intervals [place] Rate: 71 P: 74 [place]: 168 QRS: 55 QRSD: 106 T: 36 QT: 434 QTc: 472 Interpretive Statements Sinus rhythm Probable left atrial enlargement Compared to ECG 03/25/2020 19:03:01 No significant changes Electronically Signed On 03-27-2020 11:00:08 CDT by Oniel Witt [email or web address] <ELECTRONICALLY SIGNED> By: Oniel Witt MD, [facility] 03/27/20 1100 0557 0557 Oniel Witt MD, [facility] /EPI
--- NOTE | 2020-03-27 11:08 | CARD ---
[address] [address] CARDIAC CATH REPORT Name: JACQUE GAR Room: [address] Tatiana Archer#: [id number] Admission: 03/25/20 Attend Phys: Oniel Witt MD, Discharge: Date of : 72 Report #: [id number] THIS REPORT FOR: //name// cc: Jose Enrique Cui Russell J. DO ~ APPROVED REPORT Study performed: 03/26/2020 11:10:57 Patient Details Patient Status: In-Patient Room #: The patient is a 49 year-old female Event Personnel Mat Daly RN RN, Jody Lozoya, Rodolfo uBck Holkins, John Rn Perioperative Procedures Performed Art Access - R femoral artery* Left Heart Cath w/or w/o Coronaries [id number] [facility] TAMMY Place w/wo Plasty Single LAD [id number] Indication Non-STEMI Risk Factors Obesity, Hypercholesterolemia, Hypertension, Diabetes Previous Procedures/Diagnoses Previous PCI, Previous SD Procedure Narrative The patient was brought urgently to the Cardiac Catheterization Laboratory and was prepped and draped in a sterile manner. The right femoral was infiltrated with 2% Lidocaine subcutaneous anesthesia. A Crescent 6 FR sheath was inserted into the right femoral artery. Coronary angiography was performed using coronary diagnostic catheters. The right coronary system was accessed and visualized with a Diagnostic catheter. The left coronary system was accessed and visualized with a Diagnostic catheter. The left ventricle was accessed and visualized with a Diagnostic catheter. Left ventricular/Aortic Valve gradient assessed via catheter pullback. Left ventriculogram was performed in projection. Pre-demployment femoral angiogram was performed . Closure device was deployed with a 6 Fr Angioseal. The patient tolerated [place] [address] CARDIAC CATH REPORT Name: JACQUE GAR Room: [address] M.R.#: [id number] Admission: 03/25/20 Attend Phys: Oniel Witt MD, Discharge: Date of : 72 Report #: [id number] were no complications associated with the procedure. There was no hematoma. Intraoperative Conscious Sedation Sedation start time: 1149 Case end Time: 1245 Versed 2 mg Fluoro Time: 13.0 minutes Contrast Type and Amount: Visipaque 285 ml Diagnostic Cath Left Main 0% narrowing LAD 75% tubular proximal LAD stenosis followed by widely patent mid LAD stent Circumflex 20% ostial proximal circumflex narrowing followed by widely patent proximal circumflex stent Right Coronary 90% proximal and mid vessel stenosis with 100% distal occlusion with [id number]-io-[id number] collaterals filling the distal right coronary artery Left Ventriculography The left ventricle is normal in size with normal contractility. The left ventricular ejection fraction is estimated to be 60%. Left ventricular wall motion abnormalities are not present. Hemodynamics The aortic pressure is 131/71 mmHg with a mean of 99 mmHg. The left ventricular pressure is 133/3 mmHg with a mean of mmHg. The left ventricular end diastolic pressure is 16 mmHg. There was no gradient across the aortic valve upon pullback. PCI Technique Lesion Anticoagulation was achieved with Angiomax . Percutaneous coronary intervention was performed on the proximal left anterior descending artery segment. The lesion stenosis prior to intervention was 75% with WOODROW 3 flow. A 6FR XB 3.0 100CM Guide Catheter was used to engage the ostium. A IG: ProwaterFlex 180CM Interventional Guidewire was used to cross the lesion. BALLOON DILATION A Balloon catheter Trek RX 2.5 X 15 was inserted and inflated up to 16.00atm for 14seconds[place] [address] CARDIAC CATH REPORT Name: JACQUE GAR Althea [address]: [address]#: [id number] Admission: 03/25/20 Attend Phys: Oniel Witt MD, Discharge: Date of : 72 Report #: [id number] A drug-eluting stent Romario RX Stent 2.5X26mm was inserted and inflated up to 15.00atm for 13seconds. Additional Inflation: 18.00atm for 14seconds. Additional Inflation: 20.00atm for 12seconds. POST STENT DEPLOYMENT BALLOON DILATION A Balloon catheter NC Trek RX 2.75 X 8 was inserted and inflated up to 15.00atm for 7seconds. Additional Inflation: 16.00atm for 5seconds. Additional Inflation: 18.00atm for 7seconds. Additional Inflation: 18.00 alexsander for 8 seconds. Final angiography reveals 0 % stenosis with WOODROW 3 flow. Conclusion 1. Significant coronary artery disease characterized by the following: A 75% tubular proximal LAD stenosis followed by widely patent mid LAD stent B 20% ostial proximal circumflex narrowing followed by widely patent proximal circumflex stent C dominant right coronary with 90% proximal and mid vessel stenosis and 100% distal occlusion with [id number] collaterals filling the distal right coronary artery 2. Normal left ventricular systolic function, estimated ejection fraction being 60% 3. Mild elevation of left ventricular end-diastolic pressure at rest 4. Successful PCI with deployment of drug-eluting stent at the site of 75% tubular proximal LAD stenosis with 0% residual narrowing and WOODROW-3 flow to the distal vessel Recommendations Smoking Cessation Cardiac Rehabilitation Referral Medications [place] [address] CARDIAC CATH REPORT Name: JACQUE GAR Room: [address] Tatiana MHonorioRHonorio#: [id number] Admission: 03/25/20 Attend Phys: Oniel Witt MD, Discharge: Date of : 72 Report #: [id number] Diagnostic Cath Approved by: Oniel Witt MD Date/Time: 03/27/2020 11:06:37 <ELECTRONICALLY SIGNED> By: Oniel Witt MD, [facility] 03/27/20 1108 1108 1108Oniel Witt MD, [facility] /INF
--- NOTE | 2020-03-28 12:24 | D ---
[address] [address] DISCHARGE SUMMARY Name: JACQUE GAR Room: [address] Tatiana Archer#: [id number] Admission: 03/25/20 Attend Phys: Oniel Witt MD, Discharge: 03/27/20 Date of : 72 Report #: [id number] THIS REPORT FOR: //name// cc: Jose Enrique Cui Russell J. DO ~ THIS REPORT FOR: //name// CC: Oniel Ciu DATE OF SERVICE: 03/27/2020 FINAL DISCHARGE DIAGNOSES: 1. Non-ST segment elevation myocardial infarction. 2. Coronary artery disease. 3. Status post PTCA with stenting of the proximal LAD. 4. Hypertension. 5. Hyperlipidemia. 6. Tobacco abuse. 7. Type 2 diabetes. PROCEDURES: 03/26/2020 -- left heart catheterization, left ventriculography, selective coronary arteriography and percutaneous coronary intervention with deployment of drug-eluting stent in the proximal LAD. HOSPITAL COURSE: The patient is a pleasant 49-year-old female with aggressive coronary artery disease and multiple risk factors for same. She has underlying hypertension, hyperlipidemia, tobacco abuse and diabetes. Several months ago, she presented with acute inferolateral infarction, underwent acute intervention to the circumflex. I have performed subsequent elective intervention to the mid LAD. Recently, she has noted recrudescence of chest pain, particularly triggered by activity and at times by a tobacco user. She continues to smoke despite our efforts to discourage that. She presented with chest pain on 03/25 in the evening and on 03/26/2020 with a mild increase in troponin of 0.13, I elected to proceed with cardiac catheterization. That study revealed 75% tubular proximal LAD stenosis with a widely patent mid LAD stent. The circumflex stent was widely patent. The right coronary artery was chronically occluded with left to right collaterals filling the distal right coronary artery. Given this data, I deployed one drug-eluting stent in the proximal LAD with 0% residual narrowing and WOODROW 3 flow of the distal vessel. Troponin lauren minimally to 1.15 in the context of a gnm-PN-ekfihng elevation infarction. She was clinically stable without recurrent chest [place] [address] DISCHARGE SUMMARY Name: JACQUE GAR Room: [address] Tatiana Archer#: [id number] Admission: 03/25/20 Attend Phys: Oniel Witt MD, Discharge: 03/27/20 Date of : 72 Report #: [id number] LABORATORY DATA: On 03/27 revealed sodium 139, potassium 3.6, BUN 12, creatinine 0.9, glucose 198. Hemoglobin 11.5, white blood cell count 7500 with 202,000 platelets. The patient ambulated in the hallways without difficulty. DISCHARGE MEDICATIONS: She was discharged to home on the following medications: Amphetamine one tablet b.i.d., Adderall one tablet b.i.d., aspirin 81 mg daily, atorvastatin 80 mg daily, Wellbutrin 150 mg b.i.d., Cymbalta 90 mg daily, Jardiance 10 mg daily, Neurontin 300 mg t.i.d., Imdur 60 mg daily, metformin 500 mg b.i.d. to be resumed on 03/28/2020, metoprolol tartrate 25 mg b.i.d., naltrexone 50 mg daily, nicotine patches 14 mg transdermally daily, prasugrel or Effient 10 mg daily with a 60 mg periprocedural dose having been given, albuterol or ProAir 1-2 puffs b.i.d. p.r.n., diazepam 10 mg b.i.d. p.r.n., hydroxyzine or Vistaril 100 mg q. 6 hours p.r.n., p.r.n. sublingual nitroglycerin, propranolol 40 mg daily. She is scheduled to return to see me in 4-6 weeks in the office assuming interval stability, and she is to participate in cardiac rehabilitation for continuation of that activity. <ELECTRONICALLY SIGNED> By: Oniel Witt MD, FACC 03/28/20 1224 0907 [id number] Witt MD, FACC /nt
== END 2020-03-27 11:00 | disposition home or self-care (01) ==
LOC: M.ERS 12:56 → M.TBA-ER 16:12 → M.2W 19:47
PROVIDERS: Physician Assistant; Registered Nurse; ADMIT Internal Medicine; ATTEND Internal Medicine
DX: I25.110 Atherosclerotic heart disease of native coronary artery with unstable angina pectoris (principal); I10 Essential (primary) hypertension; E78.5 Hyperlipidemia, unspecified; E11.9 Type 2 diabetes mellitus without complications; F17.200 Nicotine dependence, unspecified, uncomplicated; F41.9 Anxiety disorder, unspecified; I21.4 Non-ST elevation (NSTEMI) myocardial infarction; E78.00 Pure hypercholesterolemia, unspecified

== ENCOUNTER → 2020-04-19 | Outpatient (CLI) | payer BC ==
[~2020-04-19] MED LIST changes: +EFFIENT10 MG PO
--- NOTE | 2020-04-19 18:01 | CARDNUC ---
[place] [address] CARDIAC NUCLEAR IMAGING REPORT Name: JACQUE GAR Room: [facility]#: [id number] Admission: 04/19/20 Attend Phys: Luis Eduardo Greene Discharge: Date of : 72 Date of Service: 04/19/20 1801 Report #: [id number] THIS REPORT FOR: cc: Jose Enrique Cui Russell J. DO Liston,Sajan Gill MD [facility] ~ APPROVED REPORT Imaging Protocol: Rest Tc-99m/Stress Tc-99m 1 day Study performed: 04/19/2020 14:36:32 Indication: Radiating Chest pain and Dyspnea s/p NSTEMI and PCI. Patient Location: Out-Patient Stress Tech: Christi Donis Stress Nurse: Hannah Grant RN NM Tech:ARABELLA García Ht: 5 ft 4 in Wt: 186 lbs BSA: 1.90 m2 BMI: 31.92 Medical History Medical History: Angina, Dyspnea, NSTEMI, CAD s/p stent, HLD, HTN, DM II, current smoker, strong family HX CAD, vaping, Neuropathy, knee weakness/pain Medications: ASA 81 Mg, Atorvastatin, Effient, Hydralazine, Metoprolol, NTG, Imdur. Allergies: Tramadol Cardiac Risk Factors: Current Smoker, DM, FHX of CAD, HTN, Hyperlipidemia, SOB, HX NSTEMI. Previous Cardiac Procedures: Myocardial infarction, PCI. Pretest Chest Pain Characteristics: Chest pain 10/12 Exercise History: Indeterminate Physical Disabilities: Neuropathy, knee weakness/pain. Meds Held (24 hrs): Imdur, Metoprolol, NTG. Resting Data Rest SPECT myocardial perfusion imaging was performed in supine position 30 minutes following the intravenous injection of 10.3 mCi of Tc-99m Sestamibi. Time of rest injection: 1305 Date: 04/19/2020 The images were gated to evaluate regional wall motion and calculate left ventricular ejection fraction. Administration Route: [place] [address] CARDIAC NUCLEAR IMAGING REPORT Name: JACQUE GAR Room: [facility]#: [id number] Admission: 04/19/20 Attend Phys: Luis Eduardo Greene Discharge: Date of : 72 Date of Service: 04/19/20 1801 Report #: [id number] Administration Site: Right Wrist Pharmacologic Stress Pharmacologic stress test was performed by injecting Regadenoson 0.4 mg IV push over 10-15 seconds immediately followed by the intravenous injection of 35.1 mCi of Tc-99m Sestamibi. Time of stress injection: 1430 Date: 04/19/2020 Administration Route: IV Administration Site: Right Wrist Gated Stress SPECT was performed 40 minutes after stress injection. The images were gated to evaluate regional wall motion and calculate left ventricular ejection fraction. Prone imaging was performed. Stress Test Details Stress Test: Pharmacologic stress testing performed using 0.4 mg of regadenoson per 5 mL given IV over 10 seconds. Reason for pharmacologic stress test: Neuropathy, knee weakness/pain.. HR Max Heart Rate (APMHR): 172 bpm Resting HR: 78 bpm Target HR (85% APMHR): 146 bpm Max HR Achieved: 94 bpm % of APMHR: 54 Recovery HR: 87 bpm BP Resting BP: 103/73 mmHg Max BP: 123/78 mmHg Recovery BP: 119/88 mmHg ECG Resting ECG: Sinus Rhythm Stress ECG: Sinus Rhythm ST Change: None Arrhythmia: None Recovery ECG: Sinus Rhythm Recovery ST Change: None Recovery Arrhythmia: None Clinical Reason for Termination: Completed protocol Stress Symptoms: dyspnea, back pain between shoulder blades 4/10. Exercise duration: 00 min 00 sec Exercise capacity: 1.00 [place] [address] CARDIAC NUCLEAR IMAGING REPORT Name: JACQUE GAR Room: [facility]#: [id number] Admission: 04/19/20 Attend Phys: Luis Eduardo Greene Discharge: Date of : 72 Date of Service: 04/19/20 1801 Report #: [id number] The patient noted dull chest pain present prior to test that persisted throughout testing and into the post test phase. Nurse Comments A 49 YEAR OLD FEMALE S/P NSTEMI AND PCI PRESENTED WITH KNEE PAIN, 2-3/10 DULL CHEST DISCOMFORT AND NEUROPATHY FOR A SITTING LEXISCAN R/T CHEST PAIN AND DYSPNEA. TEST WELL TOLERATED. RECOVERY UNREMARKABLE. PATIENT WAS ESCORTED BY STAFF TO NUCLEAR MEDICINE FOR IMAGING. PATIENT WAS STABLE AND STATED SHE FELT GOOD WITH SOME REMAINING CHEST DISCOMFORT RATED AT A 1-2/10. Stress ECG Conclusion The baseline twelve-lead EKG shows sinus rhythm without significant ST segment abnormality. EKG obtained during and post Lexiscan infusion shows sinus rhythm with no significant ST segment changes when compared to baseline. There were no stress-induced arrhythmias. Study Quality Study: Good Artifact: Mild Diaphragmatic artifact Study Data At rest, the left ventricular ejection fraction was 65%.. Post stress, the left ventricular ejection was 65%.. TID = 0.96. Perfusion Perfusion images show no defect to suggest infarct or ischemia. There is slight photopenia in the inferior wall that resolves with post-rest prone imaging suggesting diaphragmatic attenuation artifact. Wall Motion Normal left ventricular wall motion. Nuclear Conclusion ECG Findings: negative for ischemia Clinical Findings: equivocal Nuclear Findings: negative for ischemia Exercise Capacity: not assessed Left Ventricular Function: normal Risk Study: low Perfusion images show no defect to suggest infarct or ischemia. Left ventricular systolic function appears normal on gated studies. This [place] [address] CARDIAC NUCLEAR IMAGING REPORT Name: JACQUE GAR Room: [facility] KWASI Gianni#: [id number] Admission: 04/19/20 Attend Phys: Luis Eduardo Greene Discharge: Date of : 72 Date of Service: 04/19/20 1801 Report #: [id number] <Conclusion> The baseline twelve-lead EKG shows sinus rhythm without significant ST segment abnormality. EKG obtained during and post Lexiscan infusion shows sinus rhythm with no significant ST segment changes when compared to baseline. There were no stress-induced arrhythmias. <ELECTRONICALLY SIGNED> By: Sajan Manjarrez MD, FACC 04/19/201800 00 00 Sajan Manjarrez MD, FACC /INF
== END ==
LOC: M.NUC 04-14 08:05
PROVIDERS: ATTEND Internal Medicine
DX: I25.9 Chronic ischemic heart disease, unspecified (principal); R06.00 Dyspnea, unspecified; R07.89 Other chest pain; I21.3 ST elevation (STEMI) myocardial infarction of unspecified site

== ENCOUNTER 2020-05-29 16:16 | Emergency (ER) | payer BC ==
[~2020-05-29] VITALS: Ht 162.6 cm; Wt 84.8 kg
[2020-05-29] MEDS ORDERED: NITROSTAT0.4 M1 SUBLING (16:27)
[2020-05-29 17:11] LABS: ABSOLUTE BASOPHILS 0.1 thou/uL (0.0-0.2); ABSOLUTE EOSINOPHILS 0.3 thou/uL (0.0-0.7); ABSOLUTE LYMPHOCYTES 2.7 thou/uL (0.8-5.3); ABSOLUTE MONOCYTES 0.8 thou/uL (0.0-1.2); BASOPHILS 0.6 %; EOSINOPHILS 3.7 %; HEMATOCRIT 41.6 % (37.0-47.0); HEMOGLOBIN 14.2 gm/dL (12.0-15.0); LYMPHOCYTES 30.3 %; MCH 30.9 pg (26.0-34.0); MCV 90.7 fL (80.0-100.0); MONOCYTES 9.1 %; MPV 7.4 fl. (7.2-11.1); NUCLEATED RBCS 0 /100WBC; PLATELET COUNT* 290 thou/uL (150-400); POLYS 56.3 %; RBC 4.59 mil/uL (4.20-5.00); RDW-CV 16.3 % (10.5-14.5); WBC 8.9 thou/uL (4.0-11.0)
[2020-05-29 17:21] LABS: CALCIUM 9.8 mg/dL (8.5-10.1); CREATININE 1.2 mg/dL (0.6-1.3); POTASSIUM 4.4 mmol/L (3.5-5.1)
[2020-05-29 17:24] LABS: APTT 30.8 Seconds (25.0-31.3); PROTIME 10.1 Seconds (9.20-11.50)
[2020-05-29 17:34] LABS: ALBUMIN 3.6 g/dL (3.4-5.0); MAGNESIUM 1.6 mg/dL (1.8-2.4); TOTAL BILIRUBIN 0.4 mg/dL (<0.1-1.0); TOTAL PROTEIN 7.8 g/dL (6.4-8.2)
[2020-05-29] MEDS ORDERED: NORCO 5-325 TA1 EAC2 PO (18:25)
[2020-05-29 18:33] VITALS: BP 134/74
--- NOTE | 2020-05-30 14:20 | EKG ---
[place] [address] ELECTROCARDIOGRAM REPORT Name: JACQUE GAR Room: [facility]#: [id number] Admission: 05/29/20 Attend Phys: Discharge: 05/29/20 Date of : 72 Date of Service: 05/29/20 1620 Report #: [id number] THIS REPORT FOR: //name// [facility] ED Test Date: 2020-05-29 Test Time: 16:20:26 Pat Name: JACQUE GAR Department: Room: Gender: F Orthopedic Physician: MICH : 1970 Requested By: Uche Ray Order Number: [id number] MD: Oniel Witt Measurements Intervals [place] Rate: 82 P: 71 [place]: 149 QRS: 49 QRSD: 100 T: 18 QT: 375 QTc: 438 Interpretive Statements Sinus rhythm Borderline repolarization abnormality Baseline wander in lead(s) II,III,aVR,aVL,aVF Compared to ECG 03/27/2020 05:57:52 No significant changes Electronically Signed On 05-30-2020 14:20:14 CDT by Oniel Witt [email or web address] <ELECTRONICALLY SIGNED> By: Oniel Witt MD, [facility] 05/30/20 1420 1620 1620 Oniel Witt MD, [facility] /EPI
== END 2020-05-29 18:36 | disposition home or self-care (01) ==
LOC: M.ERS 16:16
PROVIDERS: Family Medicine
DX: R07.9 Chest pain, unspecified (principal); M54.2 Cervicalgia; R11.0 Nausea; R61 Generalized hyperhidrosis; R20.2 Paresthesia of skin; I10 Essential (primary) hypertension; E11.9 Type 2 diabetes mellitus without complications; E78.5 Hyperlipidemia, unspecified; M19.90 Unspecified osteoarthritis, unspecified site; F17.210 Nicotine dependence, cigarettes, uncomplicated; Z79.899 Other long term (current) drug therapy

== ENCOUNTER 2020-07-19 13:30 | Emergency (ER) | payer OTHER ==
[~2020-07-19] VITALS: Ht 170.2 cm; Wt 79.8 kg
[~2020-07-19 13:30] MED LIST changes: +NITROSTAT0.4 M1 SUBLING; +NORCO 5-325 TA1 EAC2 PO
[2020-07-19 14:08] LABS: ABSOLUTE BASOPHILS 0.1 thou/uL (0.0-0.2); ABSOLUTE EOSINOPHILS 0.1 thou/uL (0.0-0.7); ABSOLUTE LYMPHOCYTES 1.2 thou/uL (0.8-5.3); ABSOLUTE NEUTROPHILS 11.9 thou/uL (1.6-8.1); BASOPHILS 0.4 %; EOSINOPHILS 0.4 %; HEMATOCRIT 41.1 % (37.0-47.0); HEMOGLOBIN 13.9 gm/dL (12.0-15.0); LYMPHOCYTES 7.5 %; MCH 31.2 pg (26.0-34.0); MCHC 33.8 g/dL (28.0-37.0); MCV 92.2 fL (80.0-100.0); MONOCYTES 18.4 %; MPV 7.8 fl. (7.2-11.1); NUCLEATED RBCS 0 /100WBC; PLATELET COUNT* 176 thou/uL (150-400); POLYS 73.3 %; RBC 4.45 mil/uL (4.20-5.00); RDW-CV 15.9 % (10.5-14.5); WBC 16.2 thou/uL (4.0-11.0)
[2020-07-19 14:14] LABS: INFLUENZA A ANTIGEN Negative (Negative); INFLUENZA B ANTIGEN Negative (Negative)
[2020-07-19 14:16] LABS: CALCIUM 8.8 mg/dL (8.5-10.1); CREATININE 1.1 mg/dL (0.6-1.3)
[2020-07-19 14:21] LABS: ALBUMIN 2.7 g/dL (3.4-5.0); TOTAL BILIRUBIN 0.9 mg/dL (<0.1-1.0); TOTAL PROTEIN 8.4 g/dL (6.4-8.2)
[2020-07-19] MEDS ORDERED: VENTOLIN HFA 1818 GM INH (15:41)
[2020-07-19] MEDS ORDERED: PREDNISONE 20 M20 MG PO (15:41)
[2020-07-19] MEDS ORDERED: DOXYCYCLINE 10100 MG PO (15:41)
[2020-07-19] MEDS ORDERED: ZOFRAN ODT4 MG PO (15:41)
[2020-07-19] MEDS ORDERED: PROMETH-CODEIN 65 ML PO (15:44)
[2020-07-19 15:56] VITALS: BP 125/70
== END 2020-07-19 15:57 | disposition home or self-care (01) ==
LOC: M.ERS 13:30
PROVIDERS: Nurse Practitioner Family
DX: J20.9 Acute bronchitis, unspecified (principal); Z20.828 Contact with and (suspected) exposure to other viral communicable diseases; E11.9 Type 2 diabetes mellitus without complications; I10 Essential (primary) hypertension; E78.5 Hyperlipidemia, unspecified; M19.90 Unspecified osteoarthritis, unspecified site; I25.10 Atherosclerotic heart disease of native coronary artery without angina pectoris; F17.210 Nicotine dependence, cigarettes, uncomplicated; Z88.6 Allergy status to analgesic agent; Z79.899 Other long term (current) drug therapy; Z95.5 Presence of coronary angioplasty implant and graft; Z79.82 Long term (current) use of aspirin

== ENCOUNTER 2021-02-15 17:27 | Emergency (ER) | payer OTHER, MEDICAID ==
[~2021-02-15] VITALS: Ht 162.6 cm; Wt 85.7 kg
[~2021-02-15 17:27] MED LIST changes: +DOXYCYCLINE 10100 MG PO; +PREDNISONE 20 M20 MG PO; +PROMETH-CODEIN 65 ML PO; +VENTOLIN HFA 1818 GM INH; +ZOFRAN ODT4 MG PO
[2021-02-15] MEDS ORDERED: WELLBUTRIN XL300 MG PO (17:42)
[2021-02-15] MEDS ORDERED: ZETIA10 MG PO (17:42)
[2021-02-15] MEDS ORDERED: COQ1050 MG PO (17:43)
[2021-02-15] MEDS ORDERED: FISH OIL 1,001000 M3 PO (17:43)
[2021-02-15] MEDS ORDERED: COLACE100 MG PO (17:43)
[2021-02-15] MEDS ORDERED: CHANTIX1 MG PO (17:43)
[2021-02-15] MEDS ORDERED: NORCO5 PO (18:41)
[2021-02-15 19:06] VITALS: BP 147/95
== END 2021-02-15 19:07 | disposition home or self-care (01) ==
LOC: M.ERS 17:27
DX: M17.12 Unilateral primary osteoarthritis, left knee (principal); F17.210 Nicotine dependence, cigarettes, uncomplicated; I10 Essential (primary) hypertension; E11.9 Type 2 diabetes mellitus without complications; I25.2 Old myocardial infarction; M19.90 Unspecified osteoarthritis, unspecified site; Z79.899 Other long term (current) drug therapy

== ENCOUNTER 2021-03-15 08:13 | Emergency (ER) | payer OTHER, MEDICAID ==
[~2021-03-15] VITALS: Ht 160 cm; Wt 86.2 kg
[~2021-03-15 08:13] MED LIST changes: +CHANTIX1 MG PO; +COLACE100 MG PO; +COQ1050 MG PO; +FISH OIL 1,001000 M3 PO; +NORCO5 PO; +WELLBUTRIN XL300 MG PO; +ZETIA10 MG PO
[2021-03-15] MEDS ORDERED: HYDROCODON-ACE1 EAC7 PO (10:00)
[2021-03-15 10:05] VITALS: BP 126/68
== END 2021-03-15 10:05 | disposition home or self-care (01) ==
LOC: M.ERS 08:13
DX: M25.562 Pain in left knee (principal); E78.5 Hyperlipidemia, unspecified; I25.2 Old myocardial infarction; I10 Essential (primary) hypertension; F17.210 Nicotine dependence, cigarettes, uncomplicated; E11.9 Type 2 diabetes mellitus without complications; Z88.6 Allergy status to analgesic agent; Z79.899 Other long term (current) drug therapy; Z95.5 Presence of coronary angioplasty implant and graft

== ENCOUNTER 2021-05-16 21:13 | Observation (INO) | payer OTHER, MEDICAID ==
[~2021-05-16] VITALS: Ht 160 cm; Wt 81.6 kg
[~2021-05-16 21:13] MED LIST changes: +HYDROCODON-ACE1 EAC7 PO
[2021-05-16 21:16] VITALS: BP 143/96
[2021-05-16 21:36] LABS: ABSOLUTE BASOPHILS 0.1 thou/uL (0.0-0.2); ABSOLUTE EOSINOPHILS 0.2 thou/uL (0.0-0.7); ABSOLUTE LYMPHOCYTES 4.1 thou/uL (0.8-5.3); ABSOLUTE MONOCYTES 1.3 thou/uL (0.0-1.2); ABSOLUTE NEUTROPHILS 6.4 thou/uL (1.6-8.1); BASOPHILS 0.8 %; EOSINOPHILS 1.9 %; HEMATOCRIT 46.4 % (37.0-47.0); HEMOGLOBIN 15.7 gm/dL (12.0-15.0); LYMPHOCYTES 33.9 %; MCH 33.2 pg (26.0-34.0); MCHC 33.9 g/dL (28.0-37.0); MONOCYTES 10.5 %; MPV 7.5 fl. (7.2-11.1); NUCLEATED RBCS 0 /100WBC; PLATELET COUNT* 312 thou/uL (150-400); POLYS 52.9 %; RBC 4.73 mil/uL (4.20-5.00); RDW-CV 14.6 % (10.5-14.5); WBC 12.1 thou/uL (4.0-11.0)
[2021-05-16 21:41] LABS: CREATININE 0.7 mg/dL (0.6-1.3); POTASSIUM 3.7 mmol/L (3.5-5.1)
[2021-05-16 21:47] LABS: APTT 30.2 Seconds (25.0-31.3); PROTIME 10.2 Seconds (9.20-11.50)
[2021-05-16 21:52] LABS: ALBUMIN 4.3 g/dL (3.4-5.0); TOTAL BILIRUBIN 0.4 mg/dL (<0.1-1.0); TOTAL PROTEIN 8.6 g/dL (6.4-8.2)
[2021-05-17] VITALS (12 sets, daily range): BP systolic 103–134; BP diastolic 66–89
[2021-05-17 00:16] LABS: URINE BILIRUBIN NEGATIVE (Negative); URINE BLOOD 1+ (Negative); URINE CLARITY CLEAR; URINE COLOR YELLOW; URINE GLUCOSE-RANDOM 3+ (Negative); URINE KETONES NEGATIVE (Negative); URINE LEUKOCYTES-REFLEX TRACE (Negative); URINE PROTEIN NEGATIVE (Negative); URINE UROBILINOGEN 0.2 E.U./dl (0.2-1.0)
[2021-05-17 00:17] LABS: URINE NITRITE-REFLEX POSITIVE (Negative)
[2021-05-17 01:18] LABS: CASTS None Seen /LPF (None Seen); SQUAMOUS >10 Many /LPF (0-3)
[2021-05-17 01:19] LABS: BACTERIA-REFLEX >30 Many /HPF (None Seen); URINE RBC 3-10 Few /HPF (0-2); URINE WBC-REFLEX 6-15 Few /HPF (0-5)
[2021-05-17 01:20] LABS: CRYSTALS None Seen /LPF (None Seen)
--- NOTE | 2021-05-17 12:14 | EKG ---
[place] [address] ELECTROCARDIOGRAM REPORT Name: JACQUE GAR [address]#: [id number] Admission: 05/17/21 Attend Phys: Wilmer Lockett, Discharge: Date of : 72 Date of Service: 05/16/212113 Report #: [id number] THIS REPORT FOR: //name// [facility] ED Test Date: 2021-05-16 Test Time: 21:14:48 Pat Name: JACQUE GAR Department: Room: [facility] Gender: F Airline Managerial Supervisor: MILTON : 1970 Requested By: Angelica Donovan Order Number: [id number] MD: Otto Darling Measurements Intervals [place] Rate: 68 P: 64 [place]: 135 QRS: 45 QRSD: 103 T: 15 QT: 406 QTc: 432 Interpretive Statements Sinus rhythm Compared to ECG 05/29/2020 16:20:26 No significant changes Electronically Signed On 05-17-2021 12:14:41 CDT by Otto Darling [email or web address] <ELECTRONICALLY SIGNED> By: Otto Darling MD, [facility] 05/17/21 1214 13 13 Otto Darling MD, [facility] /EPI
--- NOTE | 2021-05-17 12:16 | EKG ---
[place] [address] ELECTROCARDIOGRAM REPORT Name: JACQUE GAR Room: [address]#: [id number] Admission: 05/17/21 Attend Phys: Wilmer Lockett, Discharge: Date of : 72 Date of Service: 05/17/21 0826 Report #: [id number] THIS REPORT FOR: //name// [facility] Test Date: 2021-05-17 Test Time: 08:26:50 Pat Name: JACQUE GAR Department: Room: [address] Gender: F Head Chef: : 1970 Requested By: Otto Darling Order Number: [id number] Cha MD: Otto Darling Measurements Intervals [place] Rate: 69 P: 65 [place]: 141 QRS: 34 QRSD: 105 T: 21 QT: 410 QTc: 440 Interpretive Statements Sinus rhythm Compared to ECG 05/16/2021 21:14:48 No significant changes Electronically Signed On 05-17-2021 12:16:21 CDT by Otto Darling [email or web address] <ELECTRONICALLY SIGNED> By: Otto Darling MD, [facility] 05/17/21 1216 5 5 Otto Darling MD, [facility] /EPI
--- NOTE | 2021-05-17 15:12 | NUR ---
1230: PATIENT RETURNED FROM CARDIAC GENERAL FARMWORKER. 3 STENTS PLACED VIA RIGHT RADIAL. ARDSTAT BAND TO RIGHT WRIST WITH 8ML AIR. BP 124/89, PULSE 84. PATIENT RESTING IN BED. WILL CONTINUE TO MONITOR
--- NOTE | 2021-05-17 15:48 | NUR ---
1500: 8ML AIR REMOVED FROM ARDSTAT TO RIGHT WRIST. ARDSTAT REMOVED, GAUZE TO SITE WIHT TRANSPARENT DRESSING. PATIENT TOLERATED PROCEDURE WITHOUT COMPLICATIONS. WILL CONTINUE TO MONITOR.
--- NOTE | 2021-05-17 18:07 | NUR ---
PATIENT RESTING IN BED. BOYFRIEND AT BEDSIDE, INVOLVED WITH CARES. CARDIAC CATH SITE TO RIGHT RADIAL, DRESSING TO SITE, C/D/I. VITALS WNL. C/O PAIN/DISCOMFORT, MORPHINE X2 GIVEN. BLOOD SUGARS MONITORED, NO INSULIN GIVEN. IV TO LEFT FOREARM WITH NORMAL SALINE INFUSING AT 100ML/HR WITHOUT COMPLICATIONS. ALL QUESTIONS AND CONCERNS ADDRESSED.
[2021-05-18] VITALS (7 sets, daily range): BP systolic 115–144; BP diastolic 74–80
[2021-05-18 04:32] LABS: HEMATOCRIT 39.7 % (37.0-47.0); MCH 32.7 pg (26.0-34.0); MCHC 33.4 g/dL (28.0-37.0); MCV 97.8 fL (80.0-100.0); MPV 7.7 fl. (7.2-11.1); RBC 4.06 mil/uL (4.20-5.00); RDW-CV 14.6 % (10.5-14.5); WBC 8.4 thou/uL (4.0-11.0)
[2021-05-18 04:56] LABS: ANION GAP 8 mmol/L (7-16); BUN 15 mg/dL (7-18); CALCIUM 8.8 mg/dL (8.5-10.1); CHLORIDE 102 mmol/L (98-107); CHOLESTEROL 153 mg/dL (<200); CO2 25 mmol/L (21-32); CREATININE 0.6 mg/dL (0.6-1.3); GLUCOSE 139 mg/dL (70-99); HDL CHOLESTEROL 40 mg/dL (>40); LDL CHOLESTEROL 83 mg/dL (<100); POTASSIUM 4.1 mmol/L (3.5-5.1); SODIUM 135 mmol/L (136-145); TC:HDL 3.8 Ratio (Not establshd); TRIGLYCERIDE 151 mg/dL (<150); VLDL 30 mg/dL (<40)
[2021-05-18 05:20] LABS: SERUM ASSESSMENT Clear
[2021-05-18 05:21] LABS: HEMOGLOBIN 13.3 gm/dL (12.0-15.0)
--- NOTE | 2021-05-18 09:52 | CARD ---
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 Inhib., Heparin Unfract. Procedure Narrative The patient was brought electively to the Cardiac Catheterization Laboratory and was prepped and draped in a sterile manner. The right wrist was infiltrated with 2% Lidocaine subcutaneous anesthesia. IV conscious sedation was used throughout procedure with appropriate monitoring and was performed in the presence of a registered nurse who was an independent trained observer other than the physician performing the procedure. The right wrist accessed via ultrasound guidance. A 6 slender glide sheath was inserted into the right [place] [id number] CARDIAC CATH REPORT Name: JACQUE GAR Althea Room: [address] Joshua.#: [id number] Admission: 05/17/21 Attend Phys: Wilmer Lockett MD Discharge: Date of : 72 Report #: [id number] radial artery. Coronary angiography was performed using coronary diagnostic catheters. The right coronary system was accessed and visualized with a Diagnostic 6 Fr JR 4 catheter. The left coronary system was accessed and visualized with a Diagnostic 5 Fr JL 3.5 catheter. The left ventricle was accessed and visualized with a Diagnostic 6 Fr Pigtail catheter. Left ventricular/Aortic Valve gradient assessed via catheter pullback. Left ventriculogram was performed in LEWIS projection. Closure device was deployed with a 6 Fr vascband. The patient tolerated the procedure well and there were no complications associated with the procedure. There was no hematoma. Unable to cannulate left coronary with a JL4 catheter. Used a JL3.5 catheter with success. Intraoperative Conscious Sedation Sedation start time: 10:32 Case end Time: 11:58 Fentanyl 50.0 mcg Versed 4.0 mg Fluoro Time: 22.2 minutes Dose: DAP 737305 cGycm2 3203 mGy Contrast Type and Amount: Visipaque 360 ml Coronary Angiography The patient's coronary anatomy is co- dominant. Diagnostic Cath Left Main 0% stenosis LAD Stent in the proximal LAD had 0% stenosis Circumflex Stent in the proximal circumflex had 0% stenosis Right Coronary Diffusely diseased vessel with a small lumen, and a proximal 90% stenosis, 99% mid stenosis, and 90% stenosis at the acute margin. Distal PDA was diffusely diseased with WOODROW grade II flow and retrograde collaterals from the left coronary. Left Ventriculography The left ventricular ejection fraction is estimated to be 50-55%. Left ventricular wall motion abnormalities are present. There is no mitral insufficiency. Moderate hypokinesis noted of the base of the inferior wall. Hemodynamics The aortic pressure is 147/74 mmHg with a mean of 98 mmHg. The left ventricular pressure is 161/-15 mmHg with a mean of mmHg. The left ventricular end diastolic pressure is 20 mmHg. There was no gradient across the aortic valve upon pullback. [place] [address] CARDIAC CATH REPORT Name: JACQUE GAR Room: [address]#: [id number] Admission: 05/17/21 Attend Phys: Wilmer Lockett MD Discharge: Date of : 72 Report #: [id number] ventricle to the aorta revealed no gradient across the aortic valve. PCI Technique Lesion Anticoagulation was achieved with Heparin. Patient was preloaded with Effient. Percutaneous coronary intervention was performed on the proximal right coronary artery. The lesion stenosis prior to intervention was 99% with WOODROW 2 flow. A JR4 with SH Guide Catheter was used to engage the RCA ostium. A Choice PT extra support Interventional Guidewire was used to cross the lesion. BALLOON DILATION A Balloon catheter 1.5 x 8 mm was inserted and inflated up to 14atm for 15seconds. Repeat angiography revealed the following post-dilatation results: 80% stenosis.. BMW guide wire was not able to cross the stenosis in the mid RCA, therefore a Choice PT extra support guide wire was used and was able to cross the stenosis. After PTCA with the 1.5 mm balloon, the stent could not be advanced. Therefore the RCA was dilated with a 2.0 x 8 mm, and a 2.5 x 12 mm balloon. STENT DEPLOYMENT A bare metal stent 2.25 x 12 mm was inserted and inflated up to 9atm for 10seconds. Repeat angiography revealed the following post-stent deployment results: 0% stenosis. A second 2.25 x 14 mm bare metal stent was advanced to the mid RCA, so that there was minimal overlap between this stent and the more distal stent. A third bare metal stent that was 2.5 x 26 mm long was inserted proximally, so that there was minimal overlap between this stent and the more distal stent in the mid RCA. Final angiography reveals 0 % stenosis with WOODROW 1 flow. COMMENTS After placing 3 bare metal stents in the proximal and mid RCA, there was no residual stenosis, however, there was minimal antegrade flow into the distal RCA. The patient was pain free, and it was decided to terminate the procedure. Conclusion 1. no restenosis of stents in the proximal LAD and Circumflex. 2. Long, diffuse stenosis of the RCA which had a narrow lumen with slow antegrade flow, and had retrograde collaterals from the left coronary. [address] [place] [address] CARDIAC CATH REPORT Name: JACQUE GAR Room: [address] Tatiana LewisHonorio#: [id number] Admission: 05/17/21 Attend Phys: Wilmer Lockett MD Discharge: Date of : 72 Report #: [id number] 3. LVEF 50-55% 4. successful placement of 3 bare metal stents in the proximal and mid RCA, however, there was slow antegrade flow in the diffusely diseased distal RCA at the end of the procedure. Recommendations Smoking Cessation Medications Administered Prasugrel <ELECTRONICALLY SIGNED> By: Otto Darling MD, [facility] 05/18/21950 0 0Davihernesto Darling MD, [facility] /INF
--- NOTE | 2021-05-18 10:20 | CON ---
[address] [address] CONSULTATION Name: JACQUE GAR Room: [address] AmandaRHonorio#: [id number] Admission: 05/17/21 Attend Phys: Wilmer Lockett MD Discharge: Date of : 72 Report #: [id number] THIS REPORT FOR: cc: FAM - No family physician/PCP FAM - No family physician/PCP Otto Darling MD [facility] ~ cc: Dr. Marcial DATE OF CONSULTATION: 05/17/2021 CARDIOLOGY CONSULTATION HISTORY OF PRESENT ILLNESS: The patient is a 50-year-old single white female whom I was asked to see in the hospital today after she complained of chest pain. The patient has an extensive and complicated past medical history. She presented with a myocardial infarction back in 12/2019. She was seen emergently by Dr. Albrecht in the middle of the night and had a single drug-eluting stent placed in the proximal circumflex artery. She was placed on Effient. She then had additional coronary stents placed by Dr. Witt. She had a stent placed in 01/[address] Witt in the mid LAD using a drug-eluting stent. She had another stent placed by Dr. Witt in 03/2020. She apparently had a stress test in 04/2020 that showed no evidence of ischemia. Since that time, she continues to have chest pain. It is not necessarily related to exertion or meals. Yesterday, however, the pain was more severe. It occurs in her chest, goes into her back. She describes a sharp pain. It occasionally goes in her arms and neck. It is not related to coughing and taking deep breath, swallowing. She has had no fever or bleeding. Denied trauma to her chest. There is no rash. She is not very active, but denies any exertional dyspnea. Recently, she had an episode of heart raced, but she felt lightheaded, but no syncope. She finally drove herself to the Emergency Room last night, was admitted for further evaluation and treatment. PAST MEDICAL AND SURGICAL HISTORY: She has had knee surgery. Currently, has knee pain, had a recent injection in her knee and she has got MRI. She has a history of hypertension, hyperlipidemia, glucose intolerance. CURRENT MEDICATIONS: Include aspirin, Wellbutrin, Cymbalta, Jardiance, Zetia, Imdur, metoprolol, Effient. ALLERGIES: She has no known drug allergies. FAMILY HISTORY: Her father had heart attack. SOCIAL HISTORY: She is , currently lives with her boyfriend here in [place]. 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 She [place] [address] [place] [address] CONSULTATION Name: JACQUE GAR Room: [address] M.RHonorio#: [id number] Admission: 05/17/21 Attend Phys: Wilmer Lockett MD Discharge: Date of : 72 Report #: [id number] packs of cigarettes a day, now less than half a pack a day. No alcohol abuse. No illicit drug use. REVIEW OF SYSTEMS: She has no history of stroke, asthma, liver disease. She has had chronic kidney disease, no cancer, no psychiatric illness. She has arthritis in her knees. No chronic skin condition. PHYSICAL EXAMINATION: GENERAL: Revealed a middle-aged female, appeared in no acute distress. VITAL SIGNS: She had a blood pressure 120/70, pulse 70. She is afebrile. HEENT: She was anicteric. Conjunctivae pink. Mucosa is moist. Neck: Veins not appear distended. No carotid bruits. Neck was supple. CHEST: Clear to auscultation. HEART: Regular rate and rhythm without murmur. ABDOMEN: Soft. EXTREMITIES: Had no edema. Dorsalis pedis pulse, 1+ bilaterally. SKIN: Cool and dry. NEUROLOGIC: Nonfocal. LABORATORY DATA: The patient had previous ABIs that were normal. She actually had an echocardiogram in 12/2019 following her myocardial infarction that showed ejection fraction of 60% with mild mitral regurgitation. There was inferobasal hypokinesis noted. Workup in the Emergency Room last night, she had a portable chest x-ray that showed normal heart size, clear lung blevins. Her lab work last night, creatinine 0.7. High sensitivity troponin was only 5. BNP 658. Lipid profile last March; cholesterol 173, triglyceride 271, HDL 40, LDL 79. Her white blood cell count 12.1, hemoglobin 15.7. COVID antigen stat test was negative. The patient has received the vaccine. ECG last night in the Emergency Room showed a sinus rhythm. There is no significant ST or T-wave change noted. IMPRESSION AND RECOMMENDATIONS: 1. Unstable angina. Recommend cardiac catheterization. 2. Previous stents. The patient is on Effient. 3. Hypertension. The patient is on a beta deisi. In light of her vascular disease, I would consider adding an GALINA inhibitor. 4. Hyperlipidemia. The patient is on Zetia for high cholesterol. I would consider adding Vascepa because of her high triglycerides. 5. Tobacco abuse. 6. Degenerative joint disease. <ELECTRONICALLY SIGNED> By: Otto Darling MD, [facility] 05/18/21 1020 0824 [id number] Darling MD, [facility] /nt
--- NOTE | 2021-05-18 13:26 | EKG ---
[place] [address] ELECTROCARDIOGRAM REPORT Name: JACQUE GAR Room: [address]R.#: [id number] Admission: 05/17/21 Attend Phys: Wilmer Lockett, Discharge: Date of : 72 Date of Service: 05/18/21 0908 Report #: [id number] THIS REPORT FOR: //name// [facility] Test Date: 2021-05-18 Test Time: 09:08:40 Pat Name: JACQUE GAR Department: Room: [address] Gender: F Extract Mixer: : 1970 Requested By: Otto Darling Order Number: [id number] Cha MD: Otto Darling Measurements Intervals [place] Rate: 66 P: 65 [place]: 146 QRS: 42 QRSD: 102 T: 29 QT: 397 QTc: 416 Interpretive Statements Sinus rhythm Baseline wander in lead(s) V2 Compared to ECG 05/17/2021 08:26:50 No significant changes Electronically Signed On 05-18-2021 13:26:35 CDT by Otto Darling [email or web address] <ELECTRONICALLY SIGNED> By: Otto Darling MD, [facility] 05/18/21 1326 [id number] [id number] Otto Darling MD, [facility] /EPI
--- NOTE | 2021-05-18 13:39 | NUR ---
CM ASSESSMENT: PT A&O, INDPENDENT WITH ADL'S, ACTIVE AND WORKS. PT USES 0 DME. NO CM D/C PLANNING NEEDS ANTICIPATED. CM WILL REMAIN AVAILABLE TO ASSIST AND FOLLOW NEEDED.
[2021-05-18] MEDS ORDERED: BAYER CHEWABLE81 MG PO (14:42)
--- NOTE | 2021-05-18 14:59 | NUR ---
PATIENT DISCHARGED AT THIS TIME VIA WHEELCHAIR ACCOMPANIED BY STAFF TO PRIVATE VEHICLE. IV DC'D, COTTON AND TAPE TO AREA. CARDIAC CATH SITE TO RIGHT RADIAL WITHOUT COMPLICATIONS. PERSONAL BELONGINGS GATHERED, SENT HOME WITH PATIENT. DISCHARGE INSTRUCTIONS REVIEWED, ACKNOWLEDGED UNDERSTANDING. ALL QUESTIONS AND CONCERNS ADDRESSED.
== END 2021-05-18 15:00 | disposition home or self-care (01) ==
LOC: M.ERS 21:13 → M.2W 05-17 00:21 → M.TBA-ER 05-17 00:21 → M.2W 05-17 02:03
PROVIDERS: Internal Medicine Cardiovascular Disease; Personal Emergency Response Attendant; ADMIT Internal Medicine; ATTEND Internal Medicine
DX: I25.110 Atherosclerotic heart disease of native coronary artery with unstable angina pectoris (principal); Z20.822 Contact with and (suspected) exposure to COVID-19; I10 Essential (primary) hypertension; I25.2 Old myocardial infarction; F41.9 Anxiety disorder, unspecified; M17.12 Unilateral primary osteoarthritis, left knee; E11.9 Type 2 diabetes mellitus without complications; E78.5 Hyperlipidemia, unspecified; F17.210 Nicotine dependence, cigarettes, uncomplicated; Z79.84 Long term (current) use of oral hypoglycemic drugs; Z79.82 Long term (current) use of aspirin; Z79.899 Other long term (current) drug therapy

== ENCOUNTER 2021-07-24 10:23 | Emergency (ER) | payer OTHER, MEDICAID ==
[~2021-07-24] VITALS: Ht 160 cm; Wt 81.7 kg
[~2021-07-24 10:23] MED LIST changes: +BAYER CHEWABLE81 MG PO
[2021-07-24] MEDS ORDERED: VICTOZA0.6 MG/0.1 SUBQ (10:48)
[2021-07-24] MEDS ORDERED: ADDERALL XR 2020 MG PO (10:48)
[2021-07-24] MEDS ORDERED: MEDROLDOSEPACK PO (11:29)
[2021-07-24] MEDS ORDERED: HYDROCODON-ACE1 EA11 PO (11:31)
[2021-07-24 11:45] VITALS: BP 124/68
== END 2021-07-24 11:47 | disposition home or self-care (01) ==
LOC: M.ERS 10:23
DX: M25.562 Pain in left knee (principal); E11.9 Type 2 diabetes mellitus without complications; I10 Essential (primary) hypertension; E78.5 Hyperlipidemia, unspecified; M19.90 Unspecified osteoarthritis, unspecified site; F41.9 Anxiety disorder, unspecified; F17.210 Nicotine dependence, cigarettes, uncomplicated; Z88.5 Allergy status to narcotic agent